=== PATIENT | female | born 1950 | race Caucasian/White ===

== ENCOUNTER 2017-06-25 21:53 | Emergency (ER) | payer MEDICAID, MEDICARE, OTHER ==
[~2017-06-25] VITALS: Ht 157.5 cm; Wt 77.1 kg
[2017-06-25 22:21] LABS: BASOPHILS # (AUTO) 0.1 10^3/uL (0.0-0.1); BASOPHILS % (AUTO) 1 % (0-10); EOSINOPHILS # (AUTO) 0.2 10^3/uL (0.0-0.3); EOSINOPHILS % (AUTO) 2 % (0-10); LYMPHOCYTES # (AUTO) 3.5 X 10^3 (1.0-4.0); LYMPHOCYTES % (AUTO) 34 % (12-44); MEAN CORPUSCULAR HEMOGLOBIN 30 PG (25-34); MEAN CORPUSCULAR HGB CONC 33 G/DL (32-36); MEAN CORPUSCULAR VOLUME 92 FL (80-99); MONOCYTES # (AUTO) 0.8 X 10^3 (0.0-1.0); MONOCYTES % (AUTO) 8 % (0-12); NEUTROPHILS # (AUTO) 5.7 X 10^3 (1.8-7.8); NEUTROPHILS % (AUTO) 55 % (42-75); PLATELET COUNT 368 10^3/uL (130-400); RED BLOOD COUNT 4.37 10^6/uL (4.35-5.85); RED CELL DISTRIBUTION WIDTH 14.4 % (10.0-14.5); WHITE BLOOD COUNT 10.3 10^3/uL (4.3-11.0)
[2017-06-25 22:30] LABS: PROTHROMBIN TIME PATIENT 12.6 SEC (12.2-14.7)
[2017-06-25] MEDS ORDERED: MECLIZINE 25 MG (ANTIVERT) TAB PO ONE (22:30)
[2017-06-25] MEDS ORDERED: SCOPOLAMINE 1.5 MG (TRANSDERM-SCOP) PATCH TD ONE (22:30)
[2017-06-25] MEDS ORDERED: ONDANSETRON 4 MG/2 ML (SDV) Z0FRAN IVP ONE (22:30)
[2017-06-25 22:36] LABS: BILIRUBIN,URINE NEGATIVE (NEGATIVE); KETONES,URINE NEGATIVE (NEGATIVE); LEUKOCYTE ESTERASE ,URINE 3+ (NEGATIVE); NITRITE,URINE NEGATIVE (NEGATIVE); PH,URINE 5 (5-9); PROTEIN,URINE NEGATIVE (NEGATIVE); UROBILINOGEN,URINE NORMAL (NORMAL)
[2017-06-25 22:38] LABS: ALANINE AMINOTRANSFERASE 15 U/L (0-55); ALBUMIN 4.2 GM/DL (3.2-4.5); ANION GAP 14 MMOL/L (5-14); ASPARTATE AMINO TRANSFERASE 14 U/L (5-34); BILIRUBIN,TOTAL 0.3 MG/DL (0.1-1.0); BLOOD UREA NITROGEN 16 MG/DL (7-18); BUN/CREATININE RATIO 18; CALCIUM 9.7 MG/DL (8.5-10.1); CARBON DIOXIDE 22 MMOL/L (21-32); CHLORIDE 105 MMOL/L (98-107); CREATINE KINASE 46 U/L (29-168); CREATININE SERUM 0.87 MG/DL (0.60-1.30); GFR ESTIMATED > 60; GLUCOSE 97 MG/DL (70-105); POTASSIUM 3.8 MMOL/L (3.6-5.0); SODIUM 141 MMOL/L (135-145); TOTAL PROTEIN 7.3 GM/DL (6.4-8.2)
[2017-06-25] MEDS ORDERED: Cod Liver Oil (22:40)
[2017-06-25] MEDS ORDERED: OMEP20CA12 (22:40)
[2017-06-25] MEDS ORDERED: Levothyroxine (22:40)
[2017-06-25] MEDS ORDERED: Simvastatin (22:40)
[2017-06-25 22:45] LABS: SQUAMOUS EPITHELIAL CELL,UR 0-2 /HPF
[2017-06-25 22:57] LABS: TROPONIN I < 0.30 NG/ML (<0.30)
[2017-06-25] MEDS ORDERED: MECL-106 PO (23:18)
[2017-06-25] MEDS ORDERED: TRIA10.8 NSEACH (23:18)
[2017-06-25] MEDS ORDERED: LEVO500T2 PO (23:18)
[2017-06-25] MEDS ORDERED: ONDA4TAB8 PO (23:18)
[2017-06-25] MEDS ORDERED: SCOP1PAT TD (23:18)
--- NOTE | 2017-06-25 23:18 | ED General ---
General Chief Complaint: Dizziness/Syncope Stated Complaint: DIZZINESS,VOMITING Nursing Triage Note: Pt ambulatory to ED reporting dizzy and nausea for 1 week, family assisted to WC. Pt moved here 2 weeks ago. Reports room spinning while lying. Pt is going to be established with LEEROY Newton ([facility]) on 07/16. Reports an am and pm emesis with her nausea. "Just been laying in bed most of week". Nursing Sepsis Screen: No Definite Risk Source of Information: Patient History of Present Illness Time Seen by Provider: 22:05 Initial Comments PT ARRIVES VIA POV FROM HOME C/O DIZZINESS X 1 WEEK HAS HAD INTERMITTENT NAUSEA AND VOMITED X 2 TODAY SITTING UP WORSENS DIZZINESS, AND LAYING DOWN IMPROVES DIZZINESS--HAS BEEN IN BED MOST OF THE DAY TODAY AND THE WEEK STATES IT IS A SPINNING SENSATION NO RECENT ILLNESS NO FEVER NO URI / SINUS SYMPTOMS NO CHEST PAIN NO SHORTNESS OF BREATH NO PALPITATIONS NO VISION CHANGES, OTHER THAN IS DIFFICULT TO FOCUS WHEN SHE IS REALLY DIZZY, BUT IS NORMAL WHEN SHE IS LAYING STILL NO PARESTHESIAS OR MOTOR DEFICITS NO HEADACHE NO HISTORY OF SIMILAR JUST MOVED HERE 2 WEEKS AGO FROM [place] TO BE CLOSER TO 'S FAMILY HAS NEW PT APPOINTMENT WITH [facility] AT [facility] ON 07/16/17 Allergies and Home Medications Allergies Coded Allergies: No Known Drug Allergies (Unverified , 06/25/17) Home Medications Levofloxacin 500 Mg Tablet, 500 MG PO DAILY, #10 Prescribed by: RENALDO SIGALA on 06/25/178 Meclizine HCl 25 Mg Tablet, 25-50 MG PO Q6H, #30 Prescribed by: RENALDO SIGALA on 06/25/172317 Omeprazole 20 Mg Capsule., #90 (Reported) Ondansetron 4 Mg Tab.rapdis, 4 MG PO Q4H, #10 Prescribed by: RENALDO SIGALA on 06/25/178 Prednisone 10 Mg Tab, 40 MG PO DAILY, #12 Prescribed by: RENALDO SIGALA on 06/25/173 Scopolamine 1 Each Patch.td72, 1 EACH TD Q72 HOURS, #3 Prescribed by: RENALDO SIGALA on 06/25/178 Triamcinolone Acetonide 10.8 Ml [place], 2 SPRAY NSEACH BID, #1 Prescribed by: RENALDO SIGALA on 06/25/17 2318 [Cod Liver Oil] , (Reported) [Levothyroxine] , (Reported) [Simvastatin] , (Reported) Constitutional: No chills, No diaphoresis, dizziness, No fever, malaise EENTM: no symptoms reported Respiratory: no symptoms reported Cardiovascular: no symptoms reported Gastrointestinal: no symptoms reported, No abdominal pain, nausea, vomiting Genitourinary: no symptoms reported Musculoskeletal: no symptoms reported Skin: no symptoms reported Psychiatric/Neurological: See HPI, Denies Headache, Denies Numbness, Denies Paresthesia, Denies Seizure, Denies Tingling, Denies Weakness Hematologic/Lymphatic: No Symptoms Reported Immunological/Allergic: no symptoms reported Past Diivyfa-Cvgdwa-Gxcihp Hx Patient Social History Alcohol Use: Denies Use Recreational Drug Use: No Smoking Status: Current Everyday Smoker (1/2 PPD) Type Used: Cigarettes 2nd Hand Smoke Exposure: Yes Recent Foreign Travel: No Contact w/Someone Who Travel: No Recent Infectious Disease Expo: No Recent Hopitalizations: No Seasonal Allergies Seasonal Allergies: No Surgeries HX Surgeries: Yes Surgeries: Appendectomy, Tubal Ligation Respiratory Hx Respiratory Disorders: No Cardiovascular Hx Cardiac Disorders: Yes Cardiac Disorders: High Cholesterol Neurological Hx Neurological Disorders: No Genitourinary Hx Genitourinary Disorders: No Gastrointestinal Hx Gastrointestinal Disorders: Yes Gastrointestinal Disorders: Gastroesophageal Reflux Musculoskeletal Hx Musculoskeletal Disorders: No Endocrine Hx Endocrine Disorders: Yes Endocrine Disorders: Hypothyroidsim HEENT HX ENT Disorders: No Cancer Hx Cancer: No Psychosocial Hx Psychiatric Problems: No Integumentary HX Skin/Integumentary Disorder: No Blood Transfusions Hx Blood Disorders: No Physical Exam Vital Signs Vital Sign - Last 12Hours 06/25/17 21:58 Temp 97.3 Pulse 96 Resp 20 B/P (MAP) 147/86 Pulse Ox 93 O2 Delivery Room Air Capillary Refill : Less Than 3 Seconds General Appearance: No Apparent Distress, WD/WN HEENT: PERRL/EOMI, Normal ENT Inspection, Pharynx Normal, Other (TM'S WITH EFFUSIONS) Neck: Full Range of Motion, Normal Inspection, Non Tender, Supple, No Carotid Bruit, No JVD Respiratory: Normal Breath Sounds, No Accessory Muscle Use, No Respiratory Distress Cardiovascular: Regular Rate, Rhythm, No Edema, No JVD, No Murmur, Normal Peripheral Pulses Gastrointestinal: Normal Bowel Sounds, No Organomegaly, No Pulsatile Mass, Non Tender, Soft Back: Normal Inspection Extremity: Normal Inspection, Normal Range of Motion, Non Tender, No Calf Tenderness, No Pedal Edema Neurologic/Psychiatric: Alert, Oriented x3, No Motor/Sensory Deficits, Normal 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, 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 Norm as Tested, No Abnormal Cerebellar Tests Reflexes: 2+ Bicep (R), 2+ Bicep (L), 2+ Knee (R), 2+ Knee (L) Skin: Normal Color, Warm/Dry Progress/Results/Core Measures Results/Orders Lab Results Laboratory Tests Test 06/25/17 22:08 06/25/17 22:30 Range/Units White Blood Count 10.3 4.3-11.0 10^3/uL Red Blood Count 4.37 4.35-5.85 10^6/uL Hemoglobin 13.1 11.5-16.0 G/DL Hematocrit 40 35-52 % Mean Corpuscular Volume 92 80-99 FL Mean Corpuscular Hemoglobin 30 25-34 PG Mean Corpuscular Hemoglobin Concent 33 32-36 G/DL Red Cell Distribution Width 14.4 10.0-14.5 % Platelet Count 368 130-400 10^3/uL Mean Platelet Volume 9.0 7.4-10.4 FL Neutrophils (%) (Auto) 55 42-75 % Lymphocytes (%) (Auto) 34 12-44 % Monocytes (%) (Auto) 8 0-12 % Eosinophils (%) (Auto) 2 0-10 % Basophils (%) (Auto) 1 0-10 % Neutrophils # (Auto) 5.7 1.8-7.8 X 10^3 Lymphocytes # (Auto) 3.5 1.0-4.0 X 10^3 Monocytes # (Auto) 0.8 0.0-1.0 X 10^3 Eosinophils # (Auto) 0.2 0.0-0.3 10^3/uL Basophils # (Auto) 0.1 0.0-0.1 10^3/uL Prothrombin Time 12.6 12.2-14.7 SEC INR Comment 1.0 0.8-1.4 Activated Partial Thromboplast Time 28 24-35 SEC Sodium Level 141 135-145 MMOL/L Potassium Level 3.8 3.6-5.0 MMOL/L Chloride Level 105 98-107 MMOL/L Carbon Dioxide Level 22 21-32 MMOL/L Anion Gap 14 5-14 MMOL/L Blood Urea Nitrogen 16 7-18 MG/DL Creatinine 0.87 0.60-1.30 MG/DL Estimat Glomerular Filtration Rate > 60 BUN/Creatinine Ratio 18 Glucose Level 97 70-105 MG/DL Calcium Level 9.7 8.5-10.1 MG/DL Magnesium Level 2.0 1.8-2.4 MG/DL Total Bilirubin 0.3 0.1-1.0 MG/DL Aspartate Amino Transf (AST/SGOT) 14 5-34 U/L Alanine Aminotransferase (ALT/SGPT) 15 0-55 U/L Alkaline Phosphatase 78 40-136 U/L Total Creatine Kinase 46 29-168 U/L Creatine Kinase MB 1.4 <6.6 NG/ML Troponin I < 0.30 <0.30 NG/ML Total Protein 7.3 6.4-8.2 GM/DL Albumin 4.2 3.2-4.5 GM/DL TSH [place] Testing 2.56 0.35-4.94 UIU/ML Urine Color YELLOW Urine Clarity CLEAR Urine pH 5 5-9 Urine Specific [place] 1.010 L 1.016-1.022 Urine Protein NEGATIVE NEGATIVE Urine Glucose (UA) NEGATIVE NEGATIVE Urine Ketones NEGATIVE NEGATIVE Urine Nitrite NEGATIVE NEGATIVE Urine Bilirubin NEGATIVE NEGATIVE Urine Urobilinogen NORMAL NORMAL MG/DL Urine Leukocyte Esterase 3+ H NEGATIVE Urine RBC (Auto) 1+ H NEGATIVE Urine RBC RARE /HPF Urine WBC 10-25 H /HPF Urine Squamous Epithelial Cells 0-2 /HPF Urine Crystals NONE /LPF Urine Bacteria TRACE /HPF Urine Casts NONE /LPF Urine Mucus NEGATIVE /LPF Urine Culture Indicated YES My Orders Orders - RENALDO SIGALA DO Saline Lock/Iv-Start (06/25/17 22:09) Ekg Tracing (06/25/17 22:09) Monitor-Rhythm Ecg Trace Only (06/25/17 22:09) Ct Head Wo (06/25/17 22:09) Cbc With Automated Diff (06/25/17 22:09) Comprehensive Metabolic Panel (06/25/17 22:09) Creatine Kinase (06/25/17 22:09) Creatine Kinase Mb (06/25/17 22:09) Magnesium (06/25/17 22:09) Protime With Inr (06/25/17 22:09) Partial Thromboplastin Time (06/25/17 22:09) Thyroid Analyzer (06/25/17 22:09) Troponin I (06/25/17 22:09) Ua Culture If Indicated (06/25/17 22:09) Chest 1 View, Ap/Pa Only (06/25/17 22:09) Scopolamine Patch (Transderm-Scop Patch) (06/25/17 22:30) Meclizine Tablet (Antivert Tablet) (06/25/17 22:30) Ondansetron Injection (Zofran Injectio (06/25/17 22:30) Urine Culture (06/25/17 22:30) Ceftriaxone Injection (Rocephin Injectio (06/25/17 23:30) Medications Given in ED Current Medications Medications Dose Ordered Sig/Jessica Route Start Time Stop Time Status Last Admin Dose Admin Ceftriaxone Sodium 1000 mg/ Sodium Chloride 50 ml @ 100 mls/hr ONCE ONCE IV 06/25/17 23:30 06/25/17 23:48 DC 06/25/17 23:40 100 MLS/HR Meclizine HCl 50 mg ONCE ONCE PO 06/25/17 22:30 06/25/17 22:31 DC 06/25/17 22:47 50 MG Ondansetron HCl 4 mg ONCE ONCE IVP 06/25/17 22:30 06/25/17 22:31 DC 06/25/17 22:47 4 MG Scopolamine 1.5 mg ONCE ONCE TD 06/25/17 22:30 06/25/17 22:31 DC 06/25/17 22:47 1.5 MG Vital Signs/I&O Vital Sign - Last 12Hours 06/25/17 06/25/17 21:58 23:46 Temp 97.3 97.3 Pulse 96 93 Resp 20 21 B/P (MAP) 147/86 Pulse Ox 93 93 O2 Delivery Room Air Room Air Intake and Output 06/26/17 00:00 Intake Total 50 ml Balance 50 ml Blood Pressure Mean: 106 Progress Note : Progress Note SYMPTOMS IMPROVED AT DISMISSAL ECG Initial ECG Impression Time: 22:18 Initial ECG Rate: 91 Initial ECG Rhythm: Normal Sinus Initial ECG Impression: Normal Initial ECG Comparisson: No Previous ECG Available Diagnostic Imaging Comments CXR--NO ACUTE PROCESS, PENDING RADIOLOGIST REVIEW CT HEAD--SMALL RIGHT MAXILLARY SINUS FLUID, OTHERWISE NO ACUTE PROCESS--PER [facility] VIA FAX @ 0922 Reviewed: Reviewed by Me Departure Impression Impression: Primary Impression: Vertigo Additional Impressions: UTI (urinary tract infection) Sinusitis Disposition: 01 HOME, SELF-CARE Condition: Improved Departure-Patient Inst. Referrals: [facility] (PCP/Family) Primary Care Physician Patient Instructions: Sinusitis, Adult (DC), Urinary Tract Infection, Adult (DC ), Vertigo (a Type of Dizziness) (DC) Add. Discharge Instructions: HOME, REST LOTS OF CLEAR LIQUIDS--NO COFFEE POP OR TEA CONTINUE YOUR REGULAR MEDICATIONS PRESCRIBED FOLLOW UP WITH [facility] IN 2-3 DAYS FOR FURTHER CARE RETURN TO ER IF WORSE All discharge instructions reviewed with patient and/or family. Voiced understanding. Scripts Prednisone (Prednisone) 10 Mg Tab 40 MG PO DAILY, #12 TAB Prov: RENALDO SIGALA DO 06/25/17 Triamcinolone Acetonide (Nasacort) 10.8 Ml [place] 2 SPRAY NSEACH BID, #1 SPRAY Prov: RENALDO SIGALA DO 06/25/17 Levofloxacin (Levaquin) 500 Mg Tablet 500 MG PO DAILY for INFECTION, #10 TAB Prov: RENALDO SIGALA DO 06/25/17 Ondansetron (Zofran Odt) 4 Mg Tab.rapdis 4 MG PO Q4H for Nausea/Vomiting, #10 TAB Prov: RENALDO SIGALA DO 06/25/17 Meclizine HCl (Meclizine HCl) 25 Mg Tablet 25-50 MG PO Q6H for Dizziness, #30 TAB Prov: RENALDO SIGALA DO 06/25/17 Scopolamine (Transderm-Scop) 1 Each Patch.td72 1 EACH TD Q72 HOURS for Dizziness, #3 PATCH Prov: RENALDO SIGALA DO 06/25/17 RENALDO SIGALA DO Jun 25, 2017 23:18
[2017-06-25] MEDS ORDERED: PRD10T PO (23:23)
[2017-06-25] MEDS ORDERED: cefTRIAXone INJECTION 1,000 MG in NS (IVPB) 50 ML IV ONE (23:30)
[2017-06-25 23:46] VITALS: BP 136/73
--- NOTE | 2017-06-26 05:54 | Diagnostic Imaging Report ---
INDICATION: Dizziness TECHNIQUE: Routine non contrast-enhanced axial images were obtained from the skull base to the vertex. COMPARISON: None. FINDINGS: The ventricles and cortical sulci are age-appropriate. There is no midline shift or mass-effect. No acute intra-axial hemorrhage is seen. There are no abnormal areas of increased or decreased density to suggest acute hemorrhage or edema. No extra-axial masses or collections are present. The bony calvarium is intact. The visualized paranasal sinuses show small mucosal retention cyst versus polyp and possible air-fluid level in the right maxillary sinus. The mastoid air cells are clear. IMPRESSION: 1. No acute intracranial abnormality. No CT evidence of mass, acute infarct or intracranial hemorrhage. 2. Right maxillary sinus disease as described above. Correlation for acute sinusitis is recommended. Dictated by: Dictated on workstation # [id number]
--- NOTE | 2017-06-26 06:27 | Diagnostic Imaging Report ---
INDICATION: Dizziness. FINDINGS: Portable chest shows the lungs to be clear. Heart is not enlarged. No evidence of pulmonary edema. No hilar adenopathy. No pneumothorax or pleural effusion. IMPRESSION: Negative portable chest. Dictated by: Dictated on workstation # [id number]
== END 2017-06-25 23:47 | disposition home or self-care (01) ==
LOC: EDBD 21:56 → ER 21:56
DX: N39.0 Urinary tract infection, site not specified (principal); J32.9 Chronic sinusitis, unspecified; R42 Dizziness and giddiness; E78.00 Pure hypercholesterolemia, unspecified; K21.9 Gastro-esophageal reflux disease without esophagitis; F17.210 Nicotine dependence, cigarettes, uncomplicated; Z90.49 Acquired absence of other specified parts of digestive tract; Z98.51 Tubal ligation status
CPT/HCPCS: 36415; 70450; 71010; 80053; 81000; 82550; 82553; 83735; 84443; 84484; 85025; 85610; 85730; 87088; 87186; 93005; 93041; 96374; 96375

== ENCOUNTER 2017-07-01 15:30 | Emergency (ER) | payer MEDICARE ==
[~2017-07-01] VITALS: Ht 157.5 cm; Wt 68.0 kg
[~2017-07-01 15:30] MED LIST: Cod Liver Oil; LEVO500T2 PO; Levothyroxine; MECL-106 PO; OMEP20CA12; ONDA4TAB8 PO; PRD10T PO; SCOP1PAT TD; Simvastatin; TRIA10.8 NSEACH
--- NOTE | 2017-07-01 16:20 | ED General ---
General Chief Complaint: Dizziness/Syncope Stated Complaint: WEAKNESS,DIZZINESS Nursing Triage Note: PT REPORTS DIZZINESS X2 WEEKS. PT WAS SEEN LAST WEEK IN ED FOR SIMILAR S/S WITH NAUSEA. PT REPORTS SHE IS JITTERY TODAY AND SHE IS ALSO HAVING GENERALIZED WEAKNESS. Nursing Sepsis Screen: No Definite Risk Source of Information: Patient Exam Limitations: No Limitations History of Present Illness Time Seen by Provider: 16:18 Initial Comments To ER with dizziness for 2 weeks worsened by movement and improved by rest, "head is jittery", no appetite. She denies fevers or chills or pains. She was seen here a few days ago and evaluated for this with labs and the CT scan which were unremarkable. She states that she is taking all of the medication that she was prescribed but does not feel any better. She recently moved to the area from [place]. She does not yet have a regular physician is scheduled to establish care with [facility]. Timing/Duration: 1-2 Days Severity: Moderate Allergies and Home Medications Allergies Coded Allergies: No Known Drug Allergies (Unverified , 06/25/17) Home Medications Levofloxacin 500 Mg Tablet, 500 MG PO DAILY, #10 Prescribed by: RENALDO SIGALA on 06/25/178 Meclizine HCl 25 Mg Tablet, 25-50 MG PO Q6H, #30 Prescribed by: RENALDO SIGALA on 06/25/178 Omeprazole 20 Mg Capsule., #90 (Reported) Ondansetron 4 Mg Tab.rapdis, 4 MG PO Q4H, #10 Prescribed by: RENALDO SIGALA on 06/25/178 Prednisone 10 Mg Tab, 40 MG PO DAILY, #12 Prescribed by: RENALDO SIGALA on 06/25/17 2323 Scopolamine 1 Each Patch.td72, 1 EACH TD Q72 HOURS, #3 Prescribed by: RENALDO SIGALA on 06/25/178 Triamcinolone Acetonide 10.8 Ml [place], 2 SPRAY NSEACH BID, #1 Prescribed by: RENALDO SIGALA on 06/25/178 [Cod Liver Oil] , (Reported) [Levothyroxine] , (Reported) [Simvastatin] , (Reported) Constitutional: see HPI EENTM: see HPI Respiratory: no symptoms reported Cardiovascular: no symptoms reported Genitourinary: no symptoms reported Musculoskeletal: no symptoms reported Skin: no symptoms reported Psychiatric/Neurological: See HPI Hematologic/Lymphatic: No Symptoms Reported Immunological/Allergic: no symptoms reported Past Zcbbtwz-Fckgjj-Nnnskd Hx Patient Social History Alcohol Use: Denies Use Recreational Drug Use: No Smoking Status: Current Everyday Smoker Type Used: Cigarettes 2nd Hand Smoke Exposure: Yes Recent Foreign Travel: No Contact w/Someone Who Travel: No Recent Infectious Disease Expo: No Recent Hopitalizations: No Seasonal Allergies Seasonal Allergies: No Surgeries HX Surgeries: Yes Surgeries: Appendectomy, Tubal Ligation Respiratory Hx Respiratory Disorders: No Cardiovascular Hx Cardiac Disorders: Yes Cardiac Disorders: High Cholesterol Neurological Hx Neurological Disorders: No Genitourinary Hx Genitourinary Disorders: No Gastrointestinal Hx Gastrointestinal Disorders: Yes Gastrointestinal Disorders: Gastroesophageal Reflux Musculoskeletal Hx Musculoskeletal Disorders: No Endocrine Hx Endocrine Disorders: Yes Endocrine Disorders: Hypothyroidsim HEENT HX ENT Disorders: No Cancer Hx Cancer: No Psychosocial Hx Psychiatric Problems: No Integumentary HX Skin/Integumentary Disorder: No Blood Transfusions Hx Blood Disorders: No Physical Exam Vital Signs Vital Sign - Last 12Hours 07/01/17 16:12 Temp 99.0 Pulse 84 Resp 20 B/P (MAP) 130/62 Pulse Ox 97 Capillary Refill : Less Than 3 Seconds General Appearance: No Apparent Distress, WD/WN Eyes: Bilateral Eye EOMI, Bilateral Eye Normal Inspection, Bilateral Eye PERRL HEENT: PERRL/EOMI, TMs Normal, Other (no nystagmus) Neck: Full Range of Motion, Normal Inspection Respiratory: Lungs Clear, Normal Breath Sounds, No Accessory Muscle Use, No Respiratory Distress Cardiovascular: Regular Rate, Rhythm, Normal Peripheral Pulses Gastrointestinal: Normal Bowel Sounds, Non Tender, Soft Extremity: Normal Capillary Refill, Normal Inspection Neurologic/Psychiatric: Alert, Oriented x3, No Motor/Sensory Deficits Skin: Normal Color, Warm/Dry Progress/Results/Core Measures Results/Orders Lab Results Laboratory Tests Test 07/01/17 16:22 07/01/17 17:29 Range/Units White Blood Count 10.9 4.3-11.0 10^3/uL Red Blood Count 4.80 4.35-5.85 10^6/uL Hemoglobin 14.2 11.5-16.0 G/DL Hematocrit 44 35-52 % Mean Corpuscular Volume 91 80-99 FL Mean Corpuscular Hemoglobin 30 25-34 PG Mean Corpuscular Hemoglobin Concent 33 32-36 G/DL Red Cell Distribution Width 14.2 10.0-14.5 % Platelet Count 357 130-400 10^3/uL Mean Platelet Volume 8.9 7.4-10.4 FL Neutrophils (%) (Auto) 69 42-75 % Lymphocytes (%) (Auto) 24 12-44 % Monocytes (%) (Auto) 6 0-12 % Eosinophils (%) (Auto) 1 0-10 % Basophils (%) (Auto) 0 0-10 % Neutrophils # (Auto) 7.5 1.8-7.8 X 10^3 Lymphocytes # (Auto) 2.6 1.0-4.0 X 10^3 Monocytes # (Auto) 0.7 0.0-1.0 X 10^3 Eosinophils # (Auto) 0.1 0.0-0.3 10^3/uL Basophils # (Auto) 0.0 0.0-0.1 10^3/uL Erythrocyte Sedimentation Rate 9 0-30 MM/HR Sodium Level 142 135-145 MMOL/L Potassium Level 4.1 3.6-5.0 MMOL/L Chloride Level 105 98-107 MMOL/L Carbon Dioxide Level 25 21-32 MMOL/L Anion Gap 12 5-14 MMOL/L Blood Urea Nitrogen 13 7-18 MG/DL Creatinine 0.86 0.60-1.30 MG/DL Estimat Glomerular Filtration Rate > 60 BUN/Creatinine Ratio 15 Glucose Level 102 70-105 MG/DL Calcium Level 9.6 8.5-10.1 MG/DL Total Bilirubin 0.8 0.1-1.0 MG/DL Aspartate Amino Transf (AST/SGOT) 15 5-34 U/L Alanine Aminotransferase (ALT/SGPT) 16 0-55 U/L Alkaline Phosphatase 71 40-136 U/L Troponin I < 0.30 <0.30 NG/ML C-Reactive Protein High Sensitivity 1.75 H 0.00-0.50 MG/DL B-Type Natriuretic Peptide 20.1 <100.0 PG/ML Total Protein 7.0 6.4-8.2 GM/DL Albumin 4.0 3.2-4.5 GM/DL Lipase < 4 L 8-78 U/L Thyroid Stimulating Hormone (TSH) 2.18 0.35-4.94 UIU/ML Urine Color YELLOW Urine Clarity CLEAR Urine pH 7 5-9 Urine Specific [place] 1.005 L 1.016-1.022 Urine Protein NEGATIVE NEGATIVE Urine Glucose (UA) NEGATIVE NEGATIVE Urine Ketones NEGATIVE NEGATIVE Urine Nitrite NEGATIVE NEGATIVE Urine Bilirubin NEGATIVE NEGATIVE Urine Urobilinogen NORMAL NORMAL MG/DL Urine Leukocyte Esterase NEGATIVE NEGATIVE Urine RBC (Auto) NEGATIVE NEGATIVE Urine RBC NONE /HPF Urine WBC NONE /HPF Urine Squamous Epithelial Cells 2-5 /HPF Urine Crystals NONE /LPF Urine Bacteria NONE /HPF Urine Casts NONE /LPF Urine Mucus NEGATIVE /LPF Urine Culture Indicated NO My Orders Orders - DONYA TOUSSAINT APRN Cbc With Automated Diff (07/01/17 16:06) Comprehensive Metabolic Panel (07/01/17 16:06) BNP (07/01/17 16:06) Troponin I (07/01/17 16:06) Ekg Tracing (07/01/17 16:06) Ua Culture If Indicated (07/01/17 16:06) Drug Screen Stat (Urine) (07/01/17 16:17) Lipase (07/01/17 16:17) Ns Iv 1000 Ml (Sodium Chloride 0.9%) (07/01/17 16:30) Meclizine Tablet (Antivert Tablet) (07/01/17 16:30) Erythrocyte Sedimentation Rate (07/01/17 16:17) Hs C Reactive Protein (07/01/17 16:17) Thyroid Stimulating Hormone (07/01/17 16:17) Medications Given in ED Current Medications Medications Dose Ordered Sig/Jessica Route Start Time Stop Time Status Last Admin Dose Admin Meclizine HCl 25 mg ONCE ONCE PO 07/01/17 16:30 07/01/17 16:31 DC 07/01/17 16:43 25 MG Vital Signs/I&O Vital Sign - Last 12Hours 07/01/17 16:12 Temp 99.0 Pulse 84 Resp 20 B/P (MAP) 130/62 Pulse Ox 97 Blood Pressure Mean: 84 Departure Impression Impression: Primary Impression: Vertigo Disposition: 01 HOME, SELF-CARE Condition: Stable Departure-Patient Inst. Decision time for Depature: 18:07 Referrals: [facility] (PCP/Family) Primary Care Physician Patient Instructions: Vertigo (a Type of Dizziness) (DC) Add. Discharge Instructions: 1. Follow-up with [facility] as scheduled. If you have a need more emergent Marco A Roman July 16 appointment U should either return to the emergency room or go to the walk-in clinic which is also at [facility]. All discharge instructions reviewed with patient and/or family. Voiced understanding. Scripts Meclizine HCl (Meclizine HCl) 25 Mg Tablet 25 MG PO TID Y for DIZZINESS, #10 TAB Prov: DONYA TOUSSAINT APRN 07/01/17 DONYA TOUSSAINT APRN Jul 01, 2017 16:20
[2017-07-01] MEDS ORDERED: MECLIZINE 25 MG (ANTIVERT) TAB PO ONE (16:30)
[2017-07-01] MEDS ORDERED: NS IV 1000 ML 1,000 ML IV SCH (16:30)
[2017-07-01 16:33] LABS: BASOPHILS % (AUTO) 0 % (0-10); EOSINOPHILS # (AUTO) 0.1 10^3/uL (0.0-0.3); EOSINOPHILS % (AUTO) 1 % (0-10); LYMPHOCYTES # (AUTO) 2.6 X 10^3 (1.0-4.0); LYMPHOCYTES % (AUTO) 24 % (12-44); MEAN CORPUSCULAR HEMOGLOBIN 30 PG (25-34); MEAN CORPUSCULAR HGB CONC 33 G/DL (32-36); MEAN CORPUSCULAR VOLUME 91 FL (80-99); MEAN PLATELET VOLUME 8.9 FL (7.4-10.4); MONOCYTES # (AUTO) 0.7 X 10^3 (0.0-1.0); MONOCYTES % (AUTO) 6 % (0-12); NEUTROPHILS # (AUTO) 7.5 X 10^3 (1.8-7.8); NEUTROPHILS % (AUTO) 69 % (42-75); PLATELET COUNT 357 10^3/uL (130-400); RED CELL DISTRIBUTION WIDTH 14.2 % (10.0-14.5); WHITE BLOOD COUNT 10.9 10^3/uL (4.3-11.0)
[2017-07-01 16:53] LABS: ALANINE AMINOTRANSFERASE 16 U/L (0-55); ANION GAP 12 MMOL/L (5-14); ASPARTATE AMINO TRANSFERASE 15 U/L (5-34); BILIRUBIN,TOTAL 0.8 MG/DL (0.1-1.0); BLOOD UREA NITROGEN 13 MG/DL (7-18); BUN/CREATININE RATIO 15; CALCIUM 9.6 MG/DL (8.5-10.1); CARBON DIOXIDE 25 MMOL/L (21-32); CHLORIDE 105 MMOL/L (98-107); CREATININE SERUM 0.86 MG/DL (0.60-1.30); GFR ESTIMATED > 60; GLUCOSE 102 MG/DL (70-105); LIPASE < 4 U/L (8-78); POTASSIUM 4.1 MMOL/L (3.6-5.0); SODIUM 142 MMOL/L (135-145); hs C REACTIVE PROTEIN 1.75 MG/DL (0.00-0.50)
[2017-07-01 16:59] LABS: ERYTHROCYTE SEDIMENTATION RATE 9 MM/HR (0-30)
[2017-07-01 17:23] LABS: TROPONIN I < 0.30 NG/ML (<0.30)
[2017-07-01 17:33] LABS: THYROID STIMULATING HORMONE 2.18 UIU/ML (0.35-4.94)
[2017-07-01 17:36] LABS: BILIRUBIN,URINE NEGATIVE (NEGATIVE); KETONES,URINE NEGATIVE (NEGATIVE); LEUKOCYTE ESTERASE ,URINE NEGATIVE (NEGATIVE); NITRITE,URINE NEGATIVE (NEGATIVE); PH,URINE 7 (5-9); PROTEIN,URINE NEGATIVE (NEGATIVE); UROBILINOGEN,URINE NORMAL (NORMAL)
[2017-07-01] MEDS ORDERED: MECL-106 PO (18:08)
[2017-07-01 18:35] VITALS: BP 132/74
== END 2017-07-01 18:35 | disposition home or self-care (01) ==
LOC: EDUNIT# 15:30 → ER 15:32
DX: R42 Dizziness and giddiness (principal); E78.00 Pure hypercholesterolemia, unspecified; K21.9 Gastro-esophageal reflux disease without esophagitis; E03.9 Hypothyroidism, unspecified; F17.210 Nicotine dependence, cigarettes, uncomplicated; Z98.51 Tubal ligation status; Z90.49 Acquired absence of other specified parts of digestive tract
CPT/HCPCS: 36415; 80053; 80306; 81000; 83690; 83880; 84443; 84484; 85025; 85652; 86141; 93005; 96360; 96361

== ENCOUNTER → 2018-01-14 | Outpatient (CLI) | payer MEDICARE, MEDICAID ==
--- NOTE | 2018-01-14 09:00 | Diagnostic Imaging Report ---
PROCEDURE: CT abdomen and pelvis without contrast. TECHNIQUE: Multiple contiguous axial images were obtained through the abdomen and pelvis without the use of intravenous contrast. INDICATION: Vomiting. Bloating. Possible liver lesion. COMPARISON: None. FINDINGS: Included portions of the lung bases show 6 mm subpleural micronodule in the lateral margins of the left lower lobe (image 7, series 2). Note is made of calcified coronary atherosclerosis. CT ABDOMEN: Liver has an unremarkable noncontrast CT appearance. The kidneys, spleen, pancreas, and adrenal glands are unremarkable as well. Small bowel loops are nondistended. Normal appendix cannot adequately identified, but there is no pericecal formation. There are a few scattered colonic diverticuli, but no CT evidence of acute diverticulitis. There is no loculated fluid collection, free fluid, nor free air within the abdomen. No abnormal mesenteric or retroperitoneal adenopathy is seen. There is moderate calcified aortic atherosclerosis. Bony structures show no acute abnormalities. CT PELVIS: Urinary bladder is unopacified. No calculi are seen within urinary bladder. There is no loculated fluid collection, free fluid, nor free air within the pelvis. No abnormal lymph nodes are identified. Bony structures show no acute abnormalities. IMPRESSION: 1. No acute abnormalities are seen within the abdomen or pelvis. 2. Colonic diverticulosis, but no CT evidence of acute diverticulitis. 3. Calcified coronary and aortic atherosclerosis. Correlation for underlying risk factors is recommended. 4. 6 mm micronodule within the included portion of the left lower lobe. Please see below for followup recommendations. PULMONARY NODULE FOLLOW-UP Single nodule: <6 mm: * Low risk patient - no routine follow up * High risk patient - optional at 12 months 6-8 mm in size: * Low risk patient - Ct at 6-12 months, then consider at 18-24 months * High risk patient - Ct at 6-12 months, then at 18-24 months >8 mm * Low risk patient - consider CT at 3 months, PET/CT or tissue sampling * High risk patient - consider CT at 3 months, PET/CT, or tissue sampling (Certain patients at high risk with suspicious nodule morphology, upper lobe location, or both may warrant 12-month follow-up) Dictated by: Dictated on workstation # [id number]
== END ==
LOC: RAD 08:29
PROVIDERS: ATTEND Nurse Practitioner Family
DX: I25.10 Atherosclerotic heart disease of native coronary artery without angina pectoris (principal); I70.0 Atherosclerosis of aorta; K57.30 Diverticulosis of large intestine without perforation or abscess without bleeding; K76.9 Liver disease, unspecified; R91.1 Solitary pulmonary nodule; R11.10 Vomiting, unspecified
CPT/HCPCS: 74176

== ENCOUNTER 2019-11-11 13:51 | Emergency (ER) | payer MEDICARE, MEDICAID ==
[~2019-11-11] VITALS: Ht 160 cm; Wt 72.0 kg
[~2019-11-11 13:51] MED LIST changes: -OMEP20CA12; +OMEP20CA13; -SCOP1PAT TD; +SCOP1PAT11 TD
[2019-11-11 14:19] LABS: BASOPHILS % (AUTO) 0 % (0-10); EOSINOPHILS # (AUTO) 0.1 10^3/uL (0.0-0.3); EOSINOPHILS % (AUTO) 1 % (0-10); HEMATOCRIT 42 % (35-52); HEMOGLOBIN 13.9 G/DL (11.5-16.0); LYMPHOCYTES # (AUTO) 2.6 X 10^3 (1.0-4.0); LYMPHOCYTES % (AUTO) 29 % (12-44); MEAN CORPUSCULAR HEMOGLOBIN 30 PG (25-34); MEAN CORPUSCULAR HGB CONC 33 G/DL (32-36); MEAN CORPUSCULAR VOLUME 91 FL (80-99); MEAN PLATELET VOLUME 9.1 FL (7.4-10.4); MONOCYTES # (AUTO) 0.7 X 10^3 (0.0-1.0); MONOCYTES % (AUTO) 7 % (0-12); NEUTROPHILS # (AUTO) 5.7 X 10^3 (1.8-7.8); NEUTROPHILS % (AUTO) 63 % (42-75); PLATELET COUNT 353 10^3/uL (130-400); RED CELL DISTRIBUTION WIDTH 13.9 % (10.0-14.5)
[2019-11-11] MEDS ORDERED: NS IV 1000 ML 1,000 ML IV SCH (14:25)
[2019-11-11] MEDS ORDERED: ONDANSETRON 4 MG/2 ML (SDV) Z0FRAN IVP ONE (14:30)
[2019-11-11] MEDS ORDERED: HYOSCYAMINE 0.125 MG (LEVSIN) TAB SL ONE (14:30)
[2019-11-11 14:37] LABS: ALANINE AMINOTRANSFERASE 10 U/L (0-55); ALBUMIN 4.8 GM/DL (3.2-4.5); ALKALINE PHOSPHATASE 67 U/L (40-136); AMYLASE 47 U/L (25-125); BILIRUBIN,TOTAL 0.4 MG/DL (0.1-1.0); BUN/CREATININE RATIO 18; CALCIUM 9.8 MG/DL (8.5-10.1); CARBON DIOXIDE 24 MMOL/L (21-32); CHLORIDE 108 MMOL/L (98-107); CREATININE SERUM 0.77 MG/DL (0.60-1.30); GFR ESTIMATED > 60; GLUCOSE 106 MG/DL (70-105); LIPASE 15 U/L (8-78); SODIUM 144 MMOL/L (135-145); TOTAL PROTEIN 7.7 GM/DL (6.4-8.2)
[2019-11-11 14:42] LABS: POTASSIUM 3.9 MMOL/L (3.6-5.0)
[2019-11-11] MEDS ORDERED: HOLD METFORMIN - RECEIVED CONTRAST 20 ML VIAL IV SCH (15:15)
[2019-11-11] MEDS ORDERED: IOHEXOL 350 MG/ML 100 ML (OMNIPAQUE 350) VIAL IV ONE (15:15)
[2019-11-11] MEDS ORDERED: NS 100 ML (IVPB) BAG IV ONE (15:15)
--- NOTE | 2019-11-11 15:19 | ED Abdominal Pain ---
General Chief Complaint: Abdominal/GI Problems Stated Complaint: SEVERE ABD PAIN Nursing Triage Note: Pt amb to room #7 with walker assist. Sent from [facility] clinic with report of medial abd discomfort, abd distension, nausea, and vomiting. Pt reports symtpoms began on the night of . Denies fever or chills. A&OX4. Sepsis Screen: No Definite Risk History of Present Illness Date Seen by Provider: Nov 11, 2019 Time Seen by Provider: 14:05 Initial Comments 69-year-old female presents for abdominal pain. Patient reports her symptoms of been present for approximately 5 days, with no significant pain in the epigastric region. She has some associated nausea and has vomited 2-3 times daily. She has been drinking water and eating Jell-O but no other solid foods. She reports a bowel movement this morning with no change in color or consistency. She's had a previous appendectomy no other abdominal surgeries. Hx of GERD, takes omeprazole and sucralfate. Timing/Duration: 5-6 Days Severity/Quality: Moderate Location: Epigastric Radiation: No Radiation Associated Symptoms: No Denies Symptoms, No Back Pain, No Chest Pain, No Diaphoresis, No Fever/Chills, No Fatigue, No Headache; Heartburn, Nausea/Vomiting; No Rash, No Shortness of Air, No Swelling/Mass in Abdomen, No Syncope, No Weakness, No Other Allergies and Home Medications Allergies Coded Allergies: No Known Drug Allergies (Unverified , 06/25/17) Home Medications Levofloxacin 500 Mg Tablet, 500 MG PO DAILY Prescribed by: RENALDO SIGALA on 06/25/172317 Meclizine HCl 25 Mg Tablet, 25-50 MG PO Q6H Prescribed by: RENALDO SIGALA on 06/25/172317 Meclizine HCl 25 Mg Tablet, 25 MG PO TID PRN for DIZZINESS Prescribed by: DONYA TOUSSAINT on 07/01/17 180 Ondansetron 4 Mg Tab.rapdis, 4 MG PO Q4H Prescribed by: RENALDO SIGALA on 06/25/172317 Ondansetron 4 Mg Tab.rapdis, 4 MG PO Q6H PRN for NAUSEA/VOMITING Prescribed by: STEPH ARCHER on 11/11/19 1654 Prednisone 10 Mg Tab, 40 MG PO DAILY Prescribed by: RENALDO SIGALA on 8/1/17 2323 Scopolamine 1 Each Patch.td72, 1 EACH TD Q72 HOURS Prescribed by: RENALDO SIGALA on 06/25/172317 Triamcinolone Acetonide 10.8 M[address] [place], 2 SPRAY NSEACH BID Prescribed by: RENALDO SIGALA on 06/25/172317 Patient Home Medication List Home Medication List Reviewed: Yes Review of Systems Review of Systems Constitutional: no symptoms reported, see HPI Gastrointestinal: See HPI, Abdomen Distended, Abdominal Pain; Denies Blood Streaked Stools, Denies Constipated, Denies Diarrhea; Nausea, Poor Appetite; Denies Poor Fluid Intake, Denies Rectal Bleeding; Vomiting All Other Systems Reviewed Negative Unless Noted: Yes Past Smwssym-Qfcgdp-Xlogmx Hx Past Med/Social Hx: Reviewed Nursing Past Med/Soc Hx Patient Social History Alcohol Use: Denies Use Recreational Drug Use: No Type Used: Cigarettes 2nd Hand Smoke Exposure: Yes Recent Foreign Travel: No Contact w/Someone Who Travel: No Recent Infectious Disease Expo: No Recent Hopitalizations: No Physical Abuse: No Sexual Abuse: No Seasonal Allergies Seasonal Allergies: No Past Medical History Surgeries: Yes Appendectomy, Tubal Ligation Respiratory: No Cardiac: Yes High Cholesterol Neurological: No Genitourinary: No Gastrointestinal: Yes Gastroesophageal Reflux Musculoskeletal: No Endocrine: Yes Hypothyroidsim, Diabetes, Non-Insulin dep HEENT: No Cancer: No Psychosocial: No Integumentary: No Blood Disorders: No Physical Exam Vital Signs Vital Signs - First Documented 11/11/19 14:00 Temp 36.5 Pulse 96 Resp 18 B/P (MAP) 138/88 (105) Pulse Ox 95 O2 Delivery Room Air Capillary Refill : Less Than 3 Seconds Height/Weight/BMI Height: 5'2.00" Weight: 150lbs. oz. 68.792797si; 28.00 BMI Method:Estimated General Appearance: WD/WN, no apparent distress HEENT: PERRL/EOMI, normal ENT inspection, TMs normal, pharynx normal Neck: non-tender, full range of motion, supple, normal inspection Respiratory: chest non-tender, lungs clear, normal breath sounds Cardiovascular: normal peripheral pulses, regular rate, rhythm Gastrointestinal: normal bowel sounds, soft, distended; No guarding, No rebound; tenderness (generalized with increased tenderness in the epigastric region); No hernia, No mass; other (positive Barrios sign) Extremities: normal range of motion, normal inspection, no pedal edema, no calf tenderness, normal capillary refill, other (generalized joint and the lower extremities secondary to arthritis. Patient uses a walker at all times for ambulation.) Back: normal inspection, no CVA tenderness Neurologic/Psychiatric: no motor/sensory deficits, alert, normal mood/affect, oriented x 3 Skin: normal color, warm/dry Progress/Results/Core Measures Results/Orders Lab Results Laboratory Tests Test 11/11/19 14:07 11/11/19 15:35 Range/Units White Blood Count 9.0 4.3-11.0 10^3/uL Red Blood Count 4.62 4.35-5.85 10^6/uL Hemoglobin 13.9 11.5-16.0 G/DL Hematocrit 42 35-52 % Mean Corpuscular Volume 91 80-99 FL Mean Corpuscular Hemoglobin 30 25-34 PG Mean Corpuscular Hemoglobin Concent 33 32-36 G/DL Red Cell Distribution Width 13.9 10.0-14.5 % Platelet Count 353 130-400 10^3/uL Mean Platelet Volume 9.1 7.4-10.4 FL Neutrophils (%) (Auto) 63 42-75 % Lymphocytes (%) (Auto) 29 12-44 % Monocytes (%) (Auto) 7 0-12 % Eosinophils (%) (Auto) 1 0-10 % Basophils (%) (Auto) 0 0-10 % Neutrophils # (Auto) 5.7 1.8-7.8 X 10^3 Lymphocytes # (Auto) 2.6 1.0-4.0 X 10^3 Monocytes # (Auto) 0.7 0.0-1.0 X 10^3 Eosinophils # (Auto) 0.1 0.0-0.3 10^3/uL Basophils # (Auto) 0.0 0.0-0.1 10^3/uL Sodium Level 144 135-145 MMOL/L Potassium Level 3.9 3.6-5.0 MMOL/L Chloride Level 108 H 98-107 MMOL/L Carbon Dioxide Level 24 21-32 MMOL/L Anion Gap 12 5-14 MMOL/L Blood Urea Nitrogen 14 7-18 MG/DL Creatinine 0.77 0.60-1.30 MG/DL Estimat Glomerular Filtration Rate > 60 BUN/Creatinine Ratio 18 Glucose Level 106 H 70-105 MG/DL Calcium Level 9.8 8.5-10.1 MG/DL Corrected Calcium 8.5-10.1 MG/DL Total Bilirubin 0.4 0.1-1.0 MG/DL Aspartate Amino Transf (AST/SGOT) 13 5-34 U/L Alanine Aminotransferase (ALT/SGPT) 10 0-55 U/L Alkaline Phosphatase 67 40-136 U/L Total Protein 7.7 6.4-8.2 GM/DL Albumin 4.8 H 3.2-4.5 GM/DL Amylase Level 47 25-125 U/L Lipase 15 8-78 U/L Urine Color YELLOW Urine Clarity CLEAR Urine pH 6.0 5-9 Urine Specific Myra <=1.005 1.016-1.022 Urine Protein NEGATIVE NEGATIVE Urine Glucose (UA) NEGATIVE NEGATIVE Urine Ketones NEGATIVE NEGATIVE Urine Nitrite NEGATIVE NEGATIVE Urine Bilirubin NEGATIVE NEGATIVE Urine Urobilinogen 0.2 < = 1.0 MG/DL Urine Leukocyte Esterase TRACE NEGATIVE Urine RBC (Auto) NEGATIVE NEGATIVE Urine RBC 0-2 /HPF Urine WBC 1-3 /HPF Urine Squamous Epithelial Cells 0-5 /HPF Urine Crystals NONE /LPF Urine Bacteria NEGATIVE /HPF Urine Casts NONE /LPF Urine Mucus NEGATIVE /LPF Urine Culture Indicated NO My Orders Orders - STEPH ARCHER Amylase (11/11/19 13:55) Cbc With Automated Diff (11/11/19 13:55) Comprehensive Metabolic Panel (11/11/19 13:55) Lipase (11/11/19 13:55) Ua Culture If Indicated (11/11/19 13:55) Ondansetron Injection (Zofran Injectio (11/11/19 14:30) Hyoscyamine Sl Tablet (Levsin Sl Tablet) (11/11/19 14:30) Ed Iv/Invasive Line Start (11/11/19 14:25) Ns Iv 1000 Ml (Sodium Chloride 0.9%) (11/11/19 14:25) Ct Abdomen/Pelvis W (11/11/19 14:57) Iohexol Injection (Omnipaque 350 Mg/Ml 1 (11/11/19 15:15) Received Contrast (Hold Metformin- Contr (11/11/19 15:15) Ns (Ivpb) (Sodium Chloride 0.9% Ivpb Bag (11/11/19 15:15) Us Gallbladder [id number] (11/11/19 15:58) Medications Given in ED Current Medications Medications Dose Ordered Sig/Jessica Route Start Time Stop Time Status Last Admin Dose Admin Hyoscyamine Sulfate 0.125 mg ONCE ONCE SL 11/11/19 14:30 11/11/19 14:31 DC 11/11/19 14:36 0.125 MG Iohexol 100 ml ONCE ONCE IV 11/11/19 15:15 11/11/19 15:16 DC 11/11/19 15:30 92 ML Ondansetron HCl 4 mg ONCE ONCE IVP 11/11/19 14:30 11/11/19 14:31 DC 11/11/19 14:36 4 MG Sodium Chloride 100 ml ONCE ONCE IV 11/11/19 15:15 11/11/19 15:16 DC 11/11/19 15:30 80 ML Vital Signs/I&O 11/11/19 11/11/19 14:00 17:12 Temp 36.5 36.5 Pulse 96 69 Resp 18 18 B/P (MAP) 138/88 (105) 147/78 (105) Pulse Ox 95 97 O2 Delivery Room Air Room Air Blood Pressure Mean: 105 Progress Progress Note : Time: 14:05 Progress Note Patient seen and evaluated, will labs. Normal saline 1 L per IV, Zofran 4 mg, and Levsin sublingual. 1440 labs essentially normal, awaiting UA. We'll obtain CT abdomen and pelvis. Patient reports some improvement in her symptoms medication. 1545 CT showed symptoms in the gallbladder, no other acute abnormalities. Will obtain ultrasound of the gallbladder. 1630 results of ultrasound reviewed with the patient. Recommended follow-up with a general surgeon. Discharge instructions and return precautions reviewed with her. All questions answered Diagnostic Imaging Diagonstic Imaging: CT Plain Films/CT/US/NM/MRI: abdomen, pelvis Comments NAME: RENATO WEBB [facility] REC#: [id number] PT STATUS: REG ER : 1950 PHYSICIAN: STEPH ARCHER ADMIT DATE: 11/11/19/ER Signed Date of Exam:11/11/19 CT ABDOMEN/PELVIS W PROCEDURE: CT abdomen and pelvis with contrast. TECHNIQUE: Multiple contiguous axial images were obtained through the abdomen and pelvis after administration of intravenous contrast. Auto Exposure Controls were utilized during the CT exam to meet ALARA standards for radiation dose reduction. INDICATION: Upper mid-abdominal pain. COMPARISON: CT from 01/14/2018. FINDINGS: The previously noted micronodule in the left lower lobe is stable at 6 mm. No additional pulmonary nodules in the lung bases are seen. The liver is unremarkable. There may be small stones within the gallbladder. No biliary ductal dilatation is detected. The pancreas and spleen are unremarkable. No right adrenal mass is seen. There is a low density nodule in the left adrenal gland measuring 14 mm. This is stable when compared with the prior exam and most likely represents an adenoma. The kidneys are unremarkable. The aorta and iliac vessels are heavily calcified but nonaneurysmal. No central retroperitoneal or mesenteric lymphadenopathy is detected. The small and large bowel loops are of normal caliber. No obstruction is seen. There is no free fluid or fluid collection identified. The bladder and uterus are unremarkable. No pelvic lymphadenopathy is detected. The bony structures are nonacute. IMPRESSION: 1. Cholelithiasis. 2. No acute feature in the abdomen or pelvis is identified. Dictated by: Dictated on workstation # [id number] Reviewed: Reviewed by Md Diagonstic Imaging: Ultrasound Plain Films/CT/US/NM/MRI: abdomen Comments [facility] [place] NAME: RENATO WEBB [facility] REC#: [id number] PT STATUS: REG ER : 1950 PHYSICIAN: STEPH ARCHERP ADMIT DATE: 11/11/19/ER Draft Date of Exam:11/11/19 US GALLBLADDER [id number] INDICATION: Abdominal pain. Gallbladder sonography is performed in routine fashion. The liver shows normal echogenicity with no focal lesions. Gallbladder shows no significant wall thickening. There are some small stones layering posteriorly in the gallbladder.. Common duct measured 5 mm. Pancreas appears unremarkable. IVC is patent. Right kidney measured 9.7 cm in length and shows no hydronephrosis or mass. There is no ascites. Portal vein shows hepatopetal flow. IMPRESSION: There are small gallstones layering posteriorly in the gallbladder. There is no gallbladder wall thickening or biliary dilatation. Dictated on workstation # [id number] Dict: 11/11/19 1633 Trans: 11/11/19 1637 [facility] [id number] Interpreted by: SABI MENDOSA MD Electronically signed by: Reviewed: Reviewed/Discussed Departure Impression Primary Impression: Cholelithiases Qualified Codes: K80.20 - Calculus of gallbladder without cholecystitis without obstruction Additional Impression: Abdominal pain Qualified Codes: R10.12 - Left upper quadrant pain Disposition: 01 HOME, SELF-CARE Condition: Improved Departure-Patient Inst. Decision time for Depature: 16:40 Referrals: [facility] (PCP/Family) Primary Care Physician SONU EARL BRETT D DO KIDO, TAKAAKI MD Patient Instructions: Acute Abdomen (Belly Pain), Adult (DC), Gallstones (DC) Add. Discharge Instructions: Schedule follow-up with a general surgeon. Dr. Berger, Dr. Earl or Dr. Mcgrath Eat a bland, non-spicy food. Avoid fried foods. Use the Zofran 1 tablet every 8 hours for nausea and vomiting. Alternate between ibuprofen 600 mg and Tylenol 650 mg for pain. Return to the emergency department for new, urgent health care needs. All discharge instructions reviewed with patient and/or family. Voiced understanding. Scripts Ondansetron (Ondansetron Odt) 4 Mg Tab.rapdis 4 MG PO Q6H PRN for NAUSEA/VOMITING, #8 TAB 0 Refills Prov: STEPH ARCHER 11/11/19 STEPH ARCHER Nov 11, 2019 15:19
[2019-11-11 15:43] LABS: BILIRUBIN,URINE NEGATIVE (NEGATIVE); CLARITY,URINE CLEAR; COLOR,URINE YELLOW; GLUCOSE, URINE (UA) NEGATIVE (NEGATIVE); KETONES,URINE NEGATIVE (NEGATIVE); LEUKOCYTE ESTERASE ,URINE TRACE (NEGATIVE); NITRITE,URINE NEGATIVE (NEGATIVE); PROTEIN,URINE NEGATIVE (NEGATIVE)
--- NOTE | 2019-11-11 15:54 | Diagnostic Imaging Report ---
PROCEDURE: CT abdomen and pelvis with contrast. TECHNIQUE: Multiple contiguous axial images were obtained through the abdomen and pelvis after administration of intravenous contrast. Auto Exposure Controls were utilized during the CT exam to meet ALARA standards for radiation dose reduction. INDICATION: Upper mid-abdominal pain. COMPARISON: CT from 01/14/2018. FINDINGS: The previously noted micronodule in the left lower lobe is stable at 6 mm. No additional pulmonary nodules in the lung bases are seen. The liver is unremarkable. There may be small stones within the gallbladder. No biliary ductal dilatation is detected. The pancreas and spleen are unremarkable. No right adrenal mass is seen. There is a low density nodule in the left adrenal gland measuring 14 mm. This is stable when compared with the prior exam and most likely represents an adenoma. The kidneys are unremarkable. The aorta and iliac vessels are heavily calcified but nonaneurysmal. No central retroperitoneal or mesenteric lymphadenopathy is detected. The small and large bowel loops are of normal caliber. No obstruction is seen. There is no free fluid or fluid collection identified. The bladder and uterus are unremarkable. No pelvic lymphadenopathy is detected. The bony structures are nonacute. IMPRESSION: 1. Cholelithiasis. 2. No acute feature in the abdomen or pelvis is identified. Dictated by: Dictated on workstation # [id number]
[2019-11-11 16:02] LABS: BACTERIA,URINE NEGATIVE /HPF; RBC,URINE 0-2 /HPF; SQUAMOUS EPITHELIAL CELL,UR 0-5 /HPF
--- NOTE | 2019-11-11 16:37 | Diagnostic Imaging Report ---
INDICATION: Abdominal pain. Gallbladder sonography is performed in routine fashion. The liver shows normal echogenicity with no focal lesions. Gallbladder shows no significant wall thickening. There are some small stones layering posteriorly in the gallbladder.. Common duct measured 5 mm. Pancreas appears unremarkable. IVC is patent. Right kidney measured 9.7 cm in length and shows no hydronephrosis or mass. There is no ascites. Portal vein shows hepatopetal flow. IMPRESSION: There are small gallstones layering posteriorly in the gallbladder. There is no gallbladder wall thickening or biliary dilatation. Dictated by: Dictated on workstation # [id number]
[2019-11-11] MEDS ORDERED: ONDA4TAB11 PO (16:54)
[2019-11-11 17:12] VITALS: BP 147/78
== END 2019-11-11 17:12 | disposition home or self-care (01) ==
LOC: EDUNIT# 13:51 → ER 13:53
DX: K80.20 Calculus of gallbladder without cholecystitis without obstruction (principal); K21.9 Gastro-esophageal reflux disease without esophagitis; E78.00 Pure hypercholesterolemia, unspecified; E11.9 Type 2 diabetes mellitus without complications; E03.9 Hypothyroidism, unspecified; Z90.49 Acquired absence of other specified parts of digestive tract; Z79.52 Long term (current) use of systemic steroids; Z77.22 Contact with and (suspected) exposure to environmental tobacco smoke (acute) (chronic); Z98.51 Tubal ligation status
CPT/HCPCS: 36415; 74177; 76705; 80053; 81000; 82150; 83690; 85025; 96374

== ENCOUNTER 2019-11-30 05:28 | Outpatient (CLI) | payer MEDICARE, MEDICAID ==
[~2019-11-30] VITALS: Ht 160 cm; Wt 71.8 kg
[~2019-11-30 05:28] MED LIST changes: +ONDA4TAB11 PO
[2019-11-30 10:36] VITALS: BP 132/63
[2019-11-30] MEDS ORDERED: OMEG1CAP58 PO (10:58)
[2019-11-30] MEDS ORDERED: METF-397 PO (10:58)
[2019-11-30] MEDS ORDERED: SUCR1TAB PO (10:58)
[2019-11-30] MEDS ORDERED: OMEP20CA13 PO (10:58)
[2019-11-30] MEDS ORDERED: LEVO75TA6 PO (10:58)
[2019-11-30] MEDS ORDERED: SIMV80TA21 PO (10:58)
== END 2019-11-30 11:03 | disposition home or self-care (01) ==
LOC: PREOP 05:28
PROVIDERS: ATTEND Surgery
DX: Z01.818 Encounter for other preprocedural examination (principal)
CPT/HCPCS: 87081

== ENCOUNTER 2019-12-04 08:20 | Day surgery (SDC) | payer MEDICAID, MEDICARE ==
[2019-12-04] VITALS (12 sets, daily range): BP systolic 100–166; BP diastolic 67–112
[~2019-12-04] VITALS: Ht 160 cm; Wt 71.8 kg
[~2019-12-04 08:20] MED LIST changes: +LEVO75TA6 PO; +METF-397 PO; +OMEG1CAP58 PO; +OMEP-280; +OMEP-280 PO; -OMEP20CA13; +SIMV80TA21 PO; +SUCR1TAB PO
[2019-12-04] MEDS ORDERED: ceFAZolin 2 GM/50 ML NS 50 ML IV ONE (08:30)
[2019-12-04] MEDS: LACTATED RINGERS 1,000 ML IV PRN ×2 (08:51→11:24)
[2019-12-04] MEDS ORDERED: IOPAMIDOL 61% 30 ML (ISOVUE 300) VIAL IV ONE (08:56)
[2019-12-04] MEDS ORDERED: BUP/EPI 0.5% 1:200,000 (SENSORCAINE) 30 ML VIAL ONE (08:56)
--- NOTE | 2019-12-04 09:05 | NUR ---
Initial visit with eugene baca and her , Yasmani. The pt said she is ready to have this procedure done and appreciated having someone accompany them to her room and visit. She said our visit was reassuring.
[2019-12-04] MEDS ORDERED: LIDOCAINE PF 2% 5 ML (XYLOCAINE) VIAL ONE (09:24)
[2019-12-04] MEDS ORDERED: SEVOFLURANE (ULTANE) 15 ML INHAL SOLN ONE ×4 (09:24→10:59)
[2019-12-04] MEDS ORDERED: proPOfol 200 MG/20 ML (DIPRIVAN) VIAL IV ONE (09:24)
[2019-12-04] MEDS ORDERED: DEXAMETHASONE 10 MG/ML (DECADRON) 1 ML VIAL ONE (09:24)
[2019-12-04] MEDS ORDERED: ONDANSETRON 4 MG/2 ML (SDV) Z0FRAN ONE (09:24)
[2019-12-04] MEDS ORDERED: fentaNYL INJECTION 100 MCG/2 ML AMP ONE (09:24)
[2019-12-04] MEDS ORDERED: MIDAZOLAM 2 MG/2 ML (VERSED) VIAL ONE (09:25)
[2019-12-04] MEDS ORDERED: ROCURONIUM 10 MG/ML 5 ML SYRINGE IV ONE (09:25)
--- NOTE | 2019-12-04 09:30 | Progress Note-Pre Operative ---
Pre-Operative Progress Note H&P Reviewed The H&P was reviewed, patient examined and no changes noted. Time Seen by Provider: 09:21 Date H&P Reviewed: Dec 04, 2019 Time H&P Reviewed: 09:22 Pre-Operative Diagnosis: Cholelithiasis/Cholecystitis, Chronic Gastritis SONU EARL DO Dec 04, 2019 09:30
--- NOTE | 2019-12-04 11:04 | Progress Note-Post Operative ---
Post-Operative Progess Note Surgeon (s)/Guard Driver (s) Surgeon SONU EARL DO Guard Driver: Alcides Pre-Operative Diagnosis Cholelithiasis/Cholecystitis, Chronic Gastritis Post-Operative Diagnosis same plus Esophagitis Hiatal Hernia Procedure & Operative Findings Date of Procedure 12/04/19 Procedure Performed/Findings EGD with bx LAp neli with IOC Anesthesia Type GET Estimated Blood Loss Estimated blood loss (mL): scant Specimens/Packing Specimens Removed antral bx Body of stomach bx GE jxn bx GB and contents SONU EARL DO Dec 04, 2019 11:04
[2019-12-04] MEDS ORDERED: ACHD5005 PO (11:05)
--- NOTE | 2019-12-04 11:06 | Endoscopy Discharge Instruct ---
Endo Procedure/Findings Findings 1.: Gastritis 2.: Hiatal Hernia 3.: Other Findings (Esophagitis) Discharge Instructions - Activity: You might feel a little sleepy until tomorrow. This is due to the medicine you received to relax you. Until tomorrow, you should: NOT drive a car, operate machinery or power tools. NOT drink any alcoholic beverages. NOT make any important decisions or sign importortant papers. Do not return to work until tomorrow, unless otherwise instructed. Resume previous activities tomorrow. Diet: Start by taking liquids. If you tolerate liquids, advance to solid food. 1.: EGD in 1 year Notify Physician - If you experience excessive bleeding, unusual abdominal pain, fever, or chest pain, contact your doctor immediately. SONU EARL DO Dec 04, 2019 11:06
--- NOTE | 2019-12-04 11:06 | Discharge Inst-Surgical ---
Discharge Inst-Surgical Depart Medication/Instructions New, Converted or Re-Newed RX: RX Given to Pt/Family Patient Instructions Follow up Appt: Make appointment for 1 week. [phone] Instructions: No lifting greater than 20 pounds. No strenuous activity. May shower in 24 hours, no tub bath or soaking. Use incentive spirometer at home as directed. No Smoking Skin/Wound Care: May remove bandages in am. You need to leave the Dermabond on incision it will fall off on it's own. Symptoms to Report: Appetite Changes, Extremity Discoloration, Numbness/Tingling, Swelling Increased, Bleeding Excessive, Eyesight Changes, Pain Increased, Urine Color Change, Constipation(Persistent), Fever over 101 degree F, Pain/Pressure in chest, Urinating Difficulty, Cough Up/Vomit Blood, Heart Beat Irreg/Pounding, Pain/Pressure in jaw, Cramps in feet or legs, Lightheadedness, Pain/Pressure in shoulder, Diarrhea(Persistent), Memory Changes Suddenly, Questions/Concerns, Weight gain consecutive days, Dizziness/Fainting, Nausea/Vomiting, Shortness of Breath, Weight gain over 2 pounds If questions or concerns contact your physician Or seek help at emergency department. Activity Activity as Tolerated: Yes Activity Instructions: Avoid Stress to Incision Driving Instructions: No Driving/Refer to Dr. Partida Discharge Diet: Avoid Fatty Foods, Low Fat/Low Cholesterol Diet After 24 Hours: Clear Liquid if Nauseous If Any Problems/Questions/Issu: Contact Your Physician, Go to Emergency Room Skin/Wound Care Infection Signs and Symptoms: Increased Redness, Foul Odor of Wound, Increased Drainage, Skin Itchy or Has a Rash, Increased Swelling, Temperature Above 101 F Wound Care Comment: heating pad to shoulder or neck tonight for pain Stitches/Jewel/Dermabond Dis: Dermabond Ice Pack: Ice On and Off Site SONU EARL DO Dec 04, 2019 11:06
--- NOTE | 2019-12-04 11:11 | Diagnostic Imaging Report ---
INDICATION: Fluoroscopy during intraoperative cholangiogram. Patient has cholelithiasis. Fluoroscopy was provided in OR during intraoperative cholangiogram. 9 seconds of fluoroscopic time was utilized. Images demonstrate contrast being injected via the cystic duct remnant. Intrahepatic and extrahepatic bile ducts are normal caliber. No filling defects are seen to suggest retained stone. Contrast flows into the duodenum. IMPRESSION: Fluoroscopy during intraoperative cholangiogram. Dictated by: Dictated on workstation # [id number]
--- NOTE | 2019-12-04 11:18 | Anesthesia-General Post-Op ---
General Patient Condition Mental Status/LOC: Same as Preop Cardiovascular: Satisfactory Nausea/Vomiting: Absent Respiratory: Satisfactory Pain: Controlled Complications: Absent Post Op Complications Complications None Follow Up Care/Instructions Patient Instructions None needed. Anesthesia/Patient Condition Patient Condition Patient is doing well, no complaints, stable vital signs, no apparent adverse anesthesia problems. No complications reported per nursing. LORRI GALARZA CRNA Dec 04, 2019 11:18
[2019-12-04] MEDS ORDERED: morphine INJ 10 MG/ML 1ML (SYR OR VIAL) ONE (11:19)
[2019-12-04] MEDS ORDERED: morphine INJ 10 MG/ML 1ML (SYR OR VIAL) IVP ONE (11:30)
[2019-12-04] MEDS ORDERED: ONDANSETRON 4 MG/2 ML (SDV) Z0FRAN IVP PRN (11:30)
[2019-12-04] MEDS ORDERED: MEPERIDINE (DEMEROL) INJ 50 MG/ML IVP ONE (11:30)
[2019-12-04] MEDS ORDERED: HYDROcodone/APAP 5 MG/325 MG (LORTAB) TAB PO ONE (12:36)
[2019-12-04] MEDS ORDERED: HYDROcodone/APAP 5 MG/325 MG (LORTAB) TAB ONE (12:38)
--- NOTE | 2019-12-04 14:15 | NUR ---
INCENTIVE TEACHING COMPLETED BY THIS RN.
--- NOTE | 2019-12-04 16:00 | OPERATIVE REPORT ---
DATE OF SERVICE: PREOPERATIVE DIAGNOSES: Cholelithiasis, cholecystitis as well as chronic gastritis. POSTOPERATIVE DIAGNOSES: Gastritis, esophagitis, hiatal hernia and cholelithiasis, cholecystitis. PROCEDURES: 1. EGD with biopsy. 2. Laparoscopic cholecystectomy, intraoperative cholangiogram. SURGEON: Cas Kingsley DO. FIELD SALES TRAINER: Alex Mcgrath DO ANESTHESIA: General endotracheal tube. SPECIMEN: Biopsy from the antrum, biopsy of body of stomach, biopsy of the GE junction and then gallbladder. BLOOD LOSS: Scant. FLUIDS: Per anesthesia. POSTOPERATIVE CONDITION: Stable. INDICATION FOR PROCEDURE: The patient is a 69-year-old female who has been having some abdominal pain, right upper quadrant, was in the ER and had ultrasound showed stones and some chronic gastritis, needed an EGD and cholecystectomy. FINDINGS: The patient had some gastritis, esophagitis and a small hiatal hernia. She also had some mild adhesions to the gallbladder which is indicative of cholecystitis attacks. PROCEDURE NOTE: After informed consent was obtained, the patient was brought to the operating room, placed on the table in supine position. She was intubated and started with the EGD. Inserted the scope down the mouth through the esophagus into the stomach. In the stomach, noted some gastritis, pushed into the duodenum. Duodenum looked fine. Pulled back and did a biopsy of the antrum. Retroflexed the scope. Did a biopsy of body of stomach and then looked up, saw a small hiatal hernia, took a picture and then pulled the scope into the GE junction. There were some changes at the Z line, did a biopsy of the GE junction and then pushed the scope back into the stomach and suctioned this out and then pulled the scope up the esophagus out of the mouth. The patient was then sterilely prepped and draped in normal fashion. We then started the gallbladder portion of the procedure. Made supraumbilical incision after first infiltrating with local lidocaine. I made an incision with #11 blade, carried down through the skin and subcutaneous tissue, deepened down to subcutaneous tissue with Bovie electrocautery down to the fascia. Fascia incised with Bovie electrocautery, bluntly entered the abdomen, swept a finger around, placed 0 Vicryl [id number] suture, then placed a 11 mm trocar port under direct visualization. Created pneumoperitoneum and then placed 3 more ports in normal fashion using local lidocaine, 11 blade for stab incision and the VersaStep system, all done under direct visualization, one subxiphoid and two in the right upper quadrant. The patient was placed slightly reverse Trendelenburg and rotated left, able to visualize the gallbladder, some mild adhesions to it, grasped at the fundus, took in superior direction, then grasped down Neeraj's pouch and pulled in inferolateral direction, started dissecting out cystic duct and cystic artery, able to get around the cystic duct and cystic artery. Cut the cystic duct alf through Metzenbaum scissors. Placed a cholangiogram catheter and shot a cholangiogram. Good spillage of dye down the cystic duct in to the common bile duct and then into the small intestine. Then removed the cholangiogram catheter, placed 2 clips proximally on the cystic duct and cut the cystic duct and cystic artery with Metzenbaum scissors, then started removing the gallbladder from the bed of liver with L-hook cautery. Once it was completely off the bed of liver, placed a bag in the abdomen, placed the gallbladder in the bag and then removed this through the supraumbilical incision. Placed the port back in the abdomen, copiously irrigated with normal saline, suctioned this out, took a picture and then placed patient flat. Removed all ports under direct visualization and allowed the pneumoperitoneum to escape and then closed the supraumbilical incision, closing the fascia with 0 Vicryl suture previously placed. Copiously irrigated all incisions with normal saline, then closed the three small 5 mm incisions with a single 4-0 undyed Monocryl subcuticular stitch. Closed the supraumbilical incision with 3 interrupted 4-0 undyed Monocryl subcuticular stitches. Area was cleaned and dried. Dermabond placed as well as Band-Aids. The patient tolerated the procedure. Sponge, instrument and needle count correct at the end of the case. Dr. Mcgrath assisted in the gallbladder portion of the case helping to make incisions, close incisions, identify anatomy and hold anatomy out of way. Job ID: [id number] DocumentID: [id number] Dictated Date: 12/04/2019 11:02:58 Manufacturing Team Member Date: 12/04/2019 15:58:59 Dictated By: DO REZA ALMANZA
== END 2019-12-04 14:40 | disposition home or self-care (01) ==
LOC: SDC 08:20
PROVIDERS: ATTEND Surgery
DX: K80.10 Calculus of gallbladder with chronic cholecystitis without obstruction (principal); K29.50 Unspecified chronic gastritis without bleeding; K21.0 Gastro-esophageal reflux disease with esophagitis; K44.9 Diaphragmatic hernia without obstruction or gangrene; K82.8 Other specified diseases of gallbladder; E11.9 Type 2 diabetes mellitus without complications; I10 Essential (primary) hypertension; E78.5 Hyperlipidemia, unspecified; F17.210 Nicotine dependence, cigarettes, uncomplicated; Z79.84 Long term (current) use of oral hypoglycemic drugs; Z79.899 Other long term (current) drug therapy
CPT/HCPCS: 82962

== ENCOUNTER 2020-08-05 23:28 | Emergency (ER) | payer MEDICARE ==
[~2020-08-05] VITALS: Ht 160 cm; Wt 66.2 kg
[~2020-08-05 23:28] MED LIST changes: +ACHD5005 PO; -MECL-106 PO; +MECL-149 PO; -OMEP-280; -OMEP-280 PO; +OMEP20CA18; +OMEP20CA18 PO
[2020-08-05] MEDS ORDERED: LACTATED RINGERS 1,000 ML IV ONE (23:45)
[2020-08-06] MEDS ORDERED: KETOROLAC 30 MG/ML VIAL IVP ONE
--- NOTE | 2020-08-06 00:01 | ED Abdominal Pain ---
General Chief Complaint: Abdominal/GI Problems Stated Complaint: ABD PAIN Nursing Triage Note: PT TO ROOM 06 VIA W/C WITH ABD PAIN X1 MONTH. PT REPORTS HAVING GALLBLADDER REMOVED Nov AND HAS BEEN HAVING PAIN FREQUENTLY SINCE THEN. PT STATES THAT SHE SEEN HER PCP X2 WEEKS AGO AND WAS GIVEN PAIN MEDS AND WAS TOLD THAT THEY WOULD ORDER A CT. PT STATES SHE HAS NOT HEARD BACK FROM PCP SINCE THEN. Sepsis Screen: No Definite Risk Source of Information: Patient History of Present Illness Date Seen by Provider: Aug 05, 2020 Time Seen by Provider: 23:45 Initial Comments PT ARRIVES VIA POV FROM HOME C/O ABDOMINAL PAIN --EPIGASTRIC AND RUQ PAIN STATES PAIN IS CONSTANT, BUT HAS SEVERE "SPASMS" AT TIMES PAIN WORSE FOR AT LEAST A MONTH--HAS ONGOING PAIN IN THIS AREA FOR A LONG TIME, HAD CHOLECYSTECTOMY DONE IN NOVEMBER OF THIS YEAR BY DR. EARL. HAS CONTINUED TO HAVE PAIN IN THIS AREA OFF AND ON SINCE SURGERY, BUT HAS BEEN MUCH WORSE AND CONSTANT FOR OVER A MONTH + NAUSEA, NO VOMITING. DOES NOT HAVE AN APPETITE--HAD JELLO AT NOON HAD NORMAL BM TODAY NO URINARY SYMPTOMS NO FEVER SAW CARLOS A SRINIVASAN 2 WEEKS AGO FOR THIS PROBLEM. NO TESTS WERE DONE, PER PT. PT WAS GIVEN RX FOR TRAMADOL--STATES "IT DOESN'T HELP AND MAKES ME SICK" --TOOK 1 PILL TODAY AROUND NOON PT STATES THAT THEY WERE GOING TO ORDER A CT SCAN, BUT PT HAS NOT FOLLOWED UP ABOUT HAVING THAT DONE PT HAS NOT ATTEMPTED TO CONTACT DR. EARL AT ANY TIME FOR THIS PT ALSO HAD APPENDECTOMY IN THE PAST PCP: [facility], CARLOS A SRINIVASAN Allergies and Home Medications Allergies Coded Allergies: No Known Drug Allergies (Unverified , 11/30/19) Home Medications Dicyclomine HCl 20 Mg Tablet, 20 MG PO Q6H Prescribed by: RENALDO SIGALA on 08/06/20 0158 Hydrocodone Bit/Acetaminophen 1 Tab Tab, 1 TAB PO Q6H PRN for PAIN-MODERATE Prescribed by: SONU EARL on 12/04/19 1105 Hyoscyamine Sulfate 0.125 Mg Tab.subl, 0.25 MG SL Q4H Prescribed by: RENALDO SIGALA on 08/06/20 0158 Levothyroxine Sodium 75 Mcg Tablet, 75 MCG PO DAILY, (Reported) Metformin HCl 500 Mg Tablet, 500 MG PO DAILY, (Reported) Tillman-3 Fatty Acids/Fish Oil 1 Each Capsule, 1 EACH PO BID, (Reported) Omeprazole 20 Mg Capsule.dr, 20 MG PO DAILY, (Reported) Ondansetron 8 Mg Tab.rapdis, 8 MG PO Q6H Prescribed by: RENALDO SIGALA on 08/06/20 0158 Simvastatin 80 Mg Tablet, 80 MG PO DAILY, (Reported) Sucralfate 1 Gm Tablet, 1 GM PO QID, (Reported) Patient Home Medication List Home Medication List Reviewed: Yes Review of Systems Review of Systems Constitutional: no symptoms reported; No chills, No fever EENTM: No Symptoms Reported Respiratory: No Symptoms Reported Cardiovascular: No Symptoms Reported; Denies Chest Pain Gastrointestinal: See HPI, Abdominal Pain; Denies Constipated, Denies Diarrhea; Nausea, Poor Appetite, Poor Fluid Intake; Denies Vomiting Genitourinary: No Symptoms Reported Musculoskeletal: no symptoms reported; No back pain Skin: no symptoms reported Psychiatric/Neurological: No Symptoms Reported Endocrine: No Symptoms Reported Hematologic/Lymphatic: No Symptoms Reported Past Zflpvpj-Iissui-Ohaosa Hx Past Med/Social Hx: Reviewed and Corrections made Patient Social History Alcohol Use: Denies Use Recreational Drug Use: No Smoking Status: Current Everyday Smoker (1/2 PPD) Type Used: Cigarettes 2nd Hand Smoke Exposure: Yes Recent Foreign Travel: No Contact w/Someone Who Travel: No Recent Infectious Disease Expo: No Recent Hopitalizations: No Physical Abuse: No Sexual Abuse: No Mistreated: No Fear: No Seasonal Allergies Seasonal Allergies: No Past Medical History Surgeries: Yes Appendectomy, Gallbladder, Tonsillectomy, Tubal Ligation Respiratory: No Currently Using CPAP: No Currently Using BIPAP: No Cardiac: Yes High Cholesterol Neurological: Yes 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 /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 Genitourinary: No Gastrointestinal: Yes (S/P SHERI AND APPY) Gastroesophageal Reflux, Chronic Constipation, Gall Bladder Disease Musculoskeletal: No Arthritis Endocrine: Yes Hypothyroidsim, Diabetes, Non-Insulin dep HEENT: No (GLASSES, DENTURES) Loss of Vision: Denies Hearing Impairment: Denies Cancer: No Psychosocial: No Integumentary: No Blood Disorders: No Adverse Reaction/Blood Tranf: No (N/A) Physical Exam Vital Signs Vital Signs - First Documented 08/05/20 23:44 Temp 36.9 Pulse 75 Resp 22 B/P (MAP) 149/77 (101) O2 Delivery Room Air Capillary Refill : Less Than 3 Seconds Height/Weight/BMI Height: 5'2.00" Weight: 150lbs. oz. [id number]; 25.00 BMI Method:Estimated General Appearance: WD/WN, no apparent distress, other (LOOKS UNCOMFORTABLE) HEENT: PERRL/EOMI; No scleral icterus (R), No scleral icterus (L) Neck: normal inspection Respiratory: normal breath sounds, no respiratory distress, no accessory muscle use Cardiovascular: normal peripheral pulses, regular rate, rhythm, no murmur Gastrointestinal: no organomegaly, no pulsatile mass, abnormal bowel sounds (HYPERACTIVE), distended, tenderness (DIFFUSE TENDERNESS, BUT MOST TENDER IN RUQ AND EPIGASTRIC AREA) Extremities: normal inspection, no pedal edema, normal capillary refill Back: normal inspection, no CVA tenderness 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, no motor/sensory deficits, alert, oriented x 3 Skin: normal color, warm/dry; No jaundice, No rash Progress/Results/Core Measures Results/Orders Lab Results Laboratory Tests Test 08/06/20 00:00 08/06/20 00:37 Range/Units White Blood Count 9.4 4.3-11.0 10^3/uL Red Blood Count 4.64 4.35-5.85 10^6/uL Hemoglobin 13.5 11.5-16.0 G/DL Hematocrit 42 35-52 % Mean Corpuscular Volume 89 80-99 FL Mean Corpuscular Hemoglobin 29 25-34 PG Mean Corpuscular Hemoglobin Concent 33 32-36 G/DL Red Cell Distribution Width 14.4 10.0-14.5 % Platelet Count 341 130-400 10^3/uL Mean Platelet Volume 9.1 7.4-10.4 FL Neutrophils (%) (Auto) 60 42-75 % Lymphocytes (%) (Auto) 32 12-44 % Monocytes (%) (Auto) 7 0-12 % Eosinophils (%) (Auto) 1 0-10 % Basophils (%) (Auto) 0 0-10 % Neutrophils # (Auto) 5.6 1.8-7.8 X 10^3 Lymphocytes # (Auto) 3.0 1.0-4.0 X 10^3 Monocytes # (Auto) 0.7 0.0-1.0 X 10^3 Eosinophils # (Auto) 0.1 0.0-0.3 10^3/uL Basophils # (Auto) 0.0 0.0-0.1 10^3/uL Sodium Level 141 135-145 MMOL/L Potassium Level 3.8 3.6-5.0 MMOL/L Chloride Level 105 98-107 MMOL/L Carbon Dioxide Level 24 21-32 MMOL/L Anion Gap 12 5-14 MMOL/L Blood Urea Nitrogen 11 7-18 MG/DL Creatinine 0.81 0.60-1.30 MG/DL Estimat Glomerular Filtration Rate > 60 BUN/Creatinine Ratio 14 Glucose Level 102 70-105 MG/DL Calcium Level 9.7 8.5-10.1 MG/DL Corrected Calcium 9.5 8.5-10.1 MG/DL Total Bilirubin 0.5 0.1-1.0 MG/DL Aspartate Amino Transf (AST/SGOT) 12 5-34 U/L Alanine Aminotransferase (ALT/SGPT) 9 0-55 U/L Alkaline Phosphatase 63 40-136 U/L Total Protein 7.3 6.4-8.2 GM/DL Albumin 4.3 3.2-4.5 GM/DL Amylase Level 45 25-125 U/L Lipase 10 8-78 U/L Urine Color YELLOW Urine Clarity CLEAR Urine pH 5.5 5-9 Urine Specific [place] <=1.005 1.016-1.022 Urine Protein NEGATIVE NEGATIVE Urine Glucose (UA) NEGATIVE NEGATIVE Urine Ketones NEGATIVE NEGATIVE Urine Nitrite NEGATIVE NEGATIVE Urine Bilirubin NEGATIVE NEGATIVE Urine Urobilinogen 0.2 < = 1.0 MG/DL Urine Leukocyte Esterase NEGATIVE NEGATIVE Urine RBC (Auto) NEGATIVE NEGATIVE Urine RBC 0-2 /HPF Urine WBC 2-5 /HPF Urine Squamous Epithelial Cells 2-5 /HPF Urine Crystals NONE /LPF Urine Bacteria FEW H /HPF Urine Casts NONE /LPF Urine Mucus NEGATIVE /LPF Urine Culture Indicated YES My Orders Orders - RENALDO SIGALA DO Ed Iv/Invasive Line Start (08/05/20 23:45) Amylase (08/05/20 23:45) Cbc With Automated Diff (08/05/20 23:45) Comprehensive Metabolic Panel (08/05/20 23:45) Lipase (08/05/20 23:45) Ua Culture If Indicated (08/05/20 23:45) Ed Iv/Invasive Line Start (08/05/20 23:45) Lactated Ringers (Lr 1000 Ml Iv Solution (08/05/20 23:45) Ketorolac Injection (Toradol Injection) (08/06/20 00:00) Ct Abdomen/Pelvis W (08/06/20 00:51) Acute Abd Series (08/06/20 00:51) Urine Culture (08/06/20 00:37) Iohexol Injection (Omnipaque 350 Mg/Ml 1 (08/06/20 02:00) Received Contrast (Hold Metformin- Contr (08/06/20 02:00) Sodium Chloride Flush (Catheter Flush Sy (08/06/20 02:00) Ns (Ivpb) (Sodium Chloride 0.9% Ivpb Bag (08/06/20 02:00) Dicyclomine Capsule (Bentyl Capsule) (08/06/20 02:00) Rx-Hyoscyamine Tab (Rx-Levsin Sl) (08/06/20 01:58) Rx-Ondansetron Po (Rx-Zofran Po) (08/06/20 01:58) Medications Given in ED Current Medications Medications Dose Ordered Sig/Jessica Route Start Time Stop Time Status Last Admin Dose Admin Iohexol 100 ml ONCE ONCE IV 08/06/20 02:00 08/06/20 02:01 DC 08/06/20 02:00 83 ML Ketorolac Tromethamine 30 mg ONCE ONCE IVP 08/06/20 00:00 08/06/20 00:01 DC 08/06/20 00:04 30 MG Lactated Ringer's 1,000 ml @ 0 mls/hr Q0M ONCE IV 08/05/20 23:45 08/05/20 23:47 DC 08/06/20 00:04 999 MLS/HR Sodium Chloride 10 ml NEEDED PRN IV 08/06/20 02:00 08/06/20 02:25 DC 08/06/20 02:00 10 ML Sodium Chloride 100 ml ONCE ONCE IV 08/06/20 02:00 08/06/20 02:01 DC 08/06/20 02:00 80 ML Vital Signs/I&O 08/05/20 23:44 Temp 36.9 Pulse 75 Resp 22 B/P (MAP) 149/77 (101) O2 Delivery Room Air Blood Pressure Mean: 101 Progress Progress Note : Progress Note SYMPTOMS IMPROVED AT DISMISSAL Diagnostic Imaging Comments ABDOMEN XRAYS--NO ACUTE PROCESS, PENDING RADIOLOGIST REVIEW CT ABDOMEN/PELVIS--NO ACUTE PROCESS, MILD HIATAL HERNIA WITH SOME REFLUS. PER [facility] VIA FAX AT [phone] Reviewed: Reviewed by Me Departure Impression Primary Impression: Abdominal pain Disposition: HOME, SELF-CARE Condition: Improved Departure-Patient Inst. Referrals: [facility]/ (PCP) Primary Care Physician SUDHEER SRINIVASAN (Family) Primary Care Physician SONU EARL DO Patient Instructions: Severe Abdominal Pain, Adult (DC) Add. Discharge Instructions: CLEAR LIQUIDS--WATER, BROTH, JELLO, GATORADE NO FOOD UNTIL YOUR SYMPTOMS ARE BETTER, AND YOU ARE NOT HAVING PAIN WHEN YOU ARE BETTER, ADD BRATS DIET TO CLEAR LIQUIDS--BANANAS, RICE, APPLESAUCE, TOAST, SALTINES CONTINUE YOUR CURRENT MEDICATIONS INCLUDING OMEPRAZOLE AND SUCRALFATE FOLLOW UP WITH DR. EARL NEXT WEEK FOR FURTHER CARE--CALL ON SATURDAY TO SCHEDULE APPOINTMENT All discharge instructions reviewed with patient and/or family. Voiced understanding. Scripts Dicyclomine HCl (Dicyclomine HCl) 20 Mg Tablet 20 MG PO Q6H for Abdominal Pain, #20 TAB Prov: RENALDO SIGALA DO 08/06/20 Hyoscyamine Sulfate (Levsin-Sl) 0.125 Mg Tab.subl 0.25 MG SL Q4H, #20 TAB Prov: RENALDO SIGALA DO 08/06/20 Ondansetron (Ondansetron Odt) 8 Mg Tab.rapdis 8 MG PO Q6H, #10 TAB Prov: RENALDO SIGALA DO 08/06/20 RENALDO SIGALA DO Aug 06, 2020 00:01
[2020-08-06 00:18] LABS: BASOPHILS % (AUTO) 0 % (0-10); EOSINOPHILS # (AUTO) 0.1 10^3/uL (0.0-0.3); EOSINOPHILS % (AUTO) 1 % (0-10); HEMATOCRIT 42 % (35-52); HEMOGLOBIN 13.5 G/DL (11.5-16.0); LYMPHOCYTES % (AUTO) 32 % (12-44); MEAN CORPUSCULAR HEMOGLOBIN 29 PG (25-34); MEAN CORPUSCULAR HGB CONC 33 G/DL (32-36); MEAN CORPUSCULAR VOLUME 89 FL (80-99); MEAN PLATELET VOLUME 9.1 FL (7.4-10.4); MONOCYTES # (AUTO) 0.7 X 10^3 (0.0-1.0); MONOCYTES % (AUTO) 7 % (0-12); NEUTROPHILS # (AUTO) 5.6 X 10^3 (1.8-7.8); NEUTROPHILS % (AUTO) 60 % (42-75); PLATELET COUNT 341 10^3/uL (130-400); WHITE BLOOD COUNT 9.4 10^3/uL (4.3-11.0)
[2020-08-06 00:31] LABS: ALBUMIN 4.3 GM/DL (3.2-4.5); CHLORIDE 105 MMOL/L (98-107); POTASSIUM 3.8 MMOL/L (3.6-5.0); SODIUM 141 MMOL/L (135-145)
[2020-08-06 00:32] LABS: AMYLASE 45 U/L (25-125); CALCIUM 9.7 MG/DL (8.5-10.1)
[2020-08-06 00:33] LABS: GLUCOSE 102 MG/DL (70-105)
[2020-08-06 00:34] LABS: TOTAL PROTEIN 7.3 GM/DL (6.4-8.2)
[2020-08-06 00:35] LABS: BILIRUBIN,TOTAL 0.5 MG/DL (0.1-1.0); CARBON DIOXIDE 24 MMOL/L (21-32)
[2020-08-06 00:37] LABS: ALKALINE PHOSPHATASE 63 U/L (40-136); CREATININE SERUM 0.81 MG/DL (0.60-1.30); GFR ESTIMATED > 60
[2020-08-06 00:38] LABS: BUN/CREATININE RATIO 14
[2020-08-06 00:40] LABS: ALANINE AMINOTRANSFERASE 9 U/L (0-55)
[2020-08-06 00:41] LABS: LIPASE 10 U/L (8-78)
[2020-08-06 00:46] LABS: BILIRUBIN,URINE NEGATIVE (NEGATIVE); CLARITY,URINE CLEAR; COLOR,URINE YELLOW; GLUCOSE, URINE (UA) NEGATIVE (NEGATIVE); KETONES,URINE NEGATIVE (NEGATIVE); LEUKOCYTE ESTERASE ,URINE NEGATIVE (NEGATIVE); NITRITE,URINE NEGATIVE (NEGATIVE); PH,URINE 5.5 (5-9); PROTEIN,URINE NEGATIVE (NEGATIVE)
[2020-08-06 01:07] LABS: BACTERIA,URINE FEW /HPF; RBC,URINE 0-2 /HPF
[2020-08-06] MEDS ORDERED: RX-HYOSCYAMINE 0.125 MG SL (LEVSIN) PPK#6 SL STA (01:58)
[2020-08-06] MEDS ORDERED: ONDA8TAB13 PO (01:58)
[2020-08-06] MEDS ORDERED: RX-ONDANSETRON 4 MG ODT (ZOFRAN) PPK #4 PO STA (01:58)
[2020-08-06] MEDS ORDERED: DICY20TA10 PO (01:58)
[2020-08-06] MEDS ORDERED: HYOS0.1283 SL (01:58)
[2020-08-06] MEDS ORDERED: DICYCLOMINE 10 MG (BENTYL) CAP PO SCH (02:00)
[2020-08-06] MEDS ORDERED: NS 100 ML (IVPB) BAG IV ONE (02:00)
[2020-08-06] MEDS ORDERED: IOHEXOL 350 MG/ML 100 ML (OMNIPAQUE 350) VIAL IV ONE (02:00)
[2020-08-06] MEDS ORDERED: CATHETER FLUSH 10 ML SYR IV PRN (02:00)
[2020-08-06] MEDS ORDERED: HOLD METFORMIN - RECEIVED CONTRAST 20 ML VIAL IV SCH (02:00)
[2020-08-06 02:21] VITALS: BP 133/72
--- NOTE | 2020-08-06 07:15 | Diagnostic Imaging Report ---
Indication: Abdominal pain PA chest, supine and upright abdominal images are obtained Lung bases are clear. There is no intraperitoneal free air. Gallbladder surgically absent. Bowel gas pattern is normal. There are no pathologic masses calcifications. IMPRESSION: No acute abnormalities in the abdomen Dictated by: Dictated on workstation # [id number]
--- NOTE | 2020-08-06 07:39 | Diagnostic Imaging Report ---
PROCEDURE: CT abdomen and pelvis with contrast. TECHNIQUE: Multiple contiguous axial images were obtained through the abdomen and pelvis after administration of intravenous contrast. Auto Exposure Controls were utilized during the CT exam to meet ALARA standards for radiation dose reduction. INDICATION: Abdominal pain for one month. Comparison is made with prior CT from 11/11/2019. Lung bases demonstrate a stable subpleural nodule left lower lobe measuring 6 mm. No discrete liver mass is detected. Gallbladder surgically absent. No biliary ductal dilatation is seen. The pancreas and spleen are unremarkable. No discrete adrenal mass is detected. Kidneys are unremarkable. Aorta and iliac vessels are calcified but non-aneurysmal. The small and large bowel loops are normal in caliber. No obstruction is identified. There is diverticulosis of the sigmoid but no evidence of acute diverticulitis. No free fluid or fluid collection is identified. The bladder and uterus are unremarkable. No inflammatory changes are seen. Bony structures are nonacute. IMPRESSION: 1. Uncomplicated colonic diverticulosis. 2. No acute feature is detected. Dictated by: Dictated on workstation # [id number]
== END 2020-08-06 02:21 | disposition home or self-care (01) ==
LOC: EDUNIT# 23:28 → ER 23:30
DX: R10.11 Right upper quadrant pain (principal); R10.13 Epigastric pain; F17.210 Nicotine dependence, cigarettes, uncomplicated; E78.00 Pure hypercholesterolemia, unspecified; G43.909 Migraine, unspecified, not intractable, without status migrainosus; K21.9 Gastro-esophageal reflux disease without esophagitis; E11.9 Type 2 diabetes mellitus without complications; E03.9 Hypothyroidism, unspecified; Z79.890 Hormone replacement therapy; Z98.890 Other specified postprocedural states; Z79.84 Long term (current) use of oral hypoglycemic drugs
CPT/HCPCS: 36415; 74022; 74177; 80053; 81000; 82150; 83690; 85025; 87077; 87088

== ENCOUNTER → 2021-06-12 | Outpatient (CLI) | payer MEDICARE ==
[~2021-06-12] MED LIST changes: +DICY20TA10 PO; +HYOS0.1283 SL; +ONDA8TAB13 PO
--- NOTE | 2021-06-12 16:13 | Diagnostic Imaging Report ---
INDICATION: Ulceration of the lateral right ankle. Sonography of the area of concern in the lateral right ankle shows no solid or cystic mass. There is no abnormal fluid collection. No abscess is evident. IMPRESSION: No abnormality is seen. Dictated by: Dictated on workstation # [id number]
== END ==
LOC: RAD 15:30
PROVIDERS: ATTEND Pediatrics
DX: L97.319 Non-pressure chronic ulcer of right ankle with unspecified severity (principal)
CPT/HCPCS: 76881

== ENCOUNTER 2022-02-09 21:56 | Emergency (ER) | payer MEDICARE ==
[~2022-02-09] VITALS: Ht 160 cm; Wt 74.8 kg
[~2022-02-09 21:56] MED LIST changes: +DICY20TA PO; -DICY20TA10 PO; +SCOP1PAT10 TD; -SCOP1PAT11 TD
[2022-02-09] MEDS ORDERED: KETOROLAC 30 MG/ML VIAL IVP STA (22:27)
[2022-02-09] MEDS ORDERED: NS IV 1000 ML 1,000 ML IV SCH (22:30)
[2022-02-09 22:35] LABS: BILIRUBIN,URINE NEGATIVE (NEGATIVE); CLARITY,URINE CLEAR; COLOR,URINE YELLOW; GLUCOSE, URINE (UA) NEGATIVE (NEGATIVE); KETONES,URINE NEGATIVE (NEGATIVE); LEUKOCYTE ESTERASE ,URINE NEGATIVE (NEGATIVE); NITRITE,URINE NEGATIVE (NEGATIVE); PH,URINE 5.5 (5-9); PROTEIN,URINE NEGATIVE (NEGATIVE)
--- NOTE | 2022-02-09 22:35 | ED Abdominal Pain ---
General Chief Complaint: Abdominal/GI Problems Stated Complaint: SIDE PAIN Source of Information: Patient History of Present Illness Date Seen by Provider: Feb 09, 2022 Time Seen by Provider: 22:22 Initial Comments PT ARRIVES VIA POV C/O LLQ/LEFT INGUINAL PAIN X 1 MONTH PAIN MOVED TO LEFT MID ABDOMEN TODAY AND IS WORSE THAN IT HAS BEEN --HAS NOT SOUGHT CARE UNTIL TONIGHT. TOOK 2 IBUPROFEN AT 1900 WITHOUT RELIEF NO INJURY OR UNUSUAL ACTIVITY--HAS BEEN AT [facility] ALL EVENING C/O NAUSEA AND VOMITED X 1 TODAY--HAD NOT HAD ANY NAUSEA/VOMITING PRIOR TO TODAY HAD NORMAL BM THIS AM--NO BLACK/BLOODY/TARRY STOOLS NO FEVER NO URINARY SYMPTOMS APPETITE HAS BEEN NORMAL NO HISTORY OF SIMILAR PRIOR ABDOMINAL SURGERIES INCLUDE CHOLECYSTECTOMY AND APPENDECTOMY NO PRIOR GI / COLON PROBLEMS PCP: SUMAN Allergies and Home Medications Allergies Coded Allergies: No Known Drug Allergies (Unverified , 11/30/19) Patient Home Medication List Dicyclomine HCl (Dicyclomine HCl) 20 Mg Tablet, 20 MG PO Q6H Prescribed by: RENALDO SIGALA on 08/06/20 0158 Hydrocodone Bit/Acetaminophen (Lortab 5 Mg Tablet) 1 Tab Tab, 1 TAB PO Q6H PRN for PAIN-MODERATE Prescribed by: SONU EARL on 12/04/19 1105 Hyoscyamine Sulfate (Levsin-Sl) 0.125 Mg Tab.subl, 0.25 MG SL Q4H Prescribed by: RENALDO SIGALA on 08/06/20 0158 Levothyroxine Sodium (Levothyroxine Sodium) 75 Mcg Tablet, 75 MCG PO DAILY, (Reported) Entered as Reported by: JUANPABLO MTZ on 11/30/19 1058 Metformin HCl (Metformin HCl) 500 Mg Tablet, 500 MG PO DAILY, (Reported) Entered as Reported by: JUANPABLO MTZ on 11/30/19 1058 Oakwood-3 Fatty Acids/Fish Oil (Oakwood 3 1,000 mg Softgel) 1 Each Capsule, 1 EACH PO BID, (Reported) Entered as Reported by: JUANPABLO MTZ on 11/30/19 1058 Omeprazole (Omeprazole) 20 Mg Capsule.dr, 20 MG PO DAILY, (Reported) Entered as Reported by: JUANPABLO MTZ on 11/30/19 1058 Ondansetron (Ondansetron Odt) 8 Mg Tab.rapdis, 8 MG PO Q6H Prescribed by: RENALDO SIGALA on 08/06/20 0158 Simvastatin (Simvastatin) 80 Mg Tablet, 80 MG PO DAILY, (Reported) Entered as Reported by: JUANPABLO MTZ on 11/30/19 1058 Sucralfate (Sucralfate) 1 Gm Tablet, 1 GM PO QID, (Reported) Entered as Reported by: JUANPABLO MTZ on 11/30/19 1058 Review of Systems Review of Systems Constitutional: no symptoms reported Respiratory: No Symptoms Reported Cardiovascular: No Symptoms Reported Gastrointestinal: See HPI, Abdominal Pain, Nausea, Vomiting Genitourinary: No Symptoms Reported Musculoskeletal: no symptoms reported Skin: no symptoms reported Psychiatric/Neurological: No Symptoms Reported Endocrine: No Symptoms Reported Hematologic/Lymphatic: No Symptoms Reported Past Gkkmneo-Soscgw-Huvvlg Hx Patient Social History Tobacco Use?: Yes (2 PPD) Tobacco type used: Cigarettes Substance use?: No Alcohol Use?: No Seasonal Allergies Seasonal Allergies: No Past Medical History Surgeries: Yes Appendectomy, Gallbladder, Tonsillectomy, Tubal Ligation Respiratory: Yes COPD Currently Using CPAP: No Currently Using BIPAP: No Cardiac: Yes High Cholesterol, Hypertension Neurological: Yes 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 /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, Menopausal Genitourinary: No Gastrointestinal: Yes (S/P SHERI AND APPY) Gastroesophageal Reflux, Chronic Constipation, Gall Bladder Disease Musculoskeletal: Yes Arthritis Endocrine: Yes (OBESITY) Hypothyroidsim, Diabetes, Non-Insulin dep HEENT: No (GLASSES, DENTURES) Loss of Vision: Denies Hearing Impairment: Denies Cancer: No Psychosocial: No Integumentary: No Blood Disorders: No Adverse Reaction/Blood Tranf: No (N/A) Physical Exam Vital Signs Vital Signs - First Documented 02/09/22 22:07 Temp 37.4 Pulse 97 Resp 22 B/P (MAP) 146/61 (89) Pulse Ox 98 O2 Delivery Room Air Capillary Refill : Height/Weight/BMI Height: 5'2.00" Weight: 150lbs. oz. 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, no motor/sensory deficits, alert, normal mood/affect, oriented x 3 Skin: normal color, warm/dry; No rash; tattoos/piercings (TATTOOS) Focused Exam Sepsis Stage: Ruled Out Reason for ruling out sepsis: DOES NOT MEET CRITERIA Possible Source: GI Tract/Intra-Abdominal Lactate Level 02/09/22 22:30: Lactic Acid Level 2.68*H 02/10/22 00:45: Time of Focused Exam: 23:30 Respiratory: Normal Breath Sounds, No Accessory Muscle Use, No Respiratory Distress Cardiovascular: Regular Rate, Rhythm, No Murmur Capillary Refill: Less Than 3 Seconds Skin: normal color, warm/dry Lactic Acid Level Laboratory Tests Test 02/09/22 22:30 02/10/22 00:45 Lactic Acid Level 2.68 MMOL/L (0.50-2.00) *H Within 3hrs of presentation: Admin fluids, Blood cultures prior to ABX's, Focus exam, Lactate level Progress/Results/Core Measures Results/Orders Lab Results Laboratory Tests Test 02/09/22 22:20 02/09/22 22:30 02/10/22 00:45 Range/Units Urine Color YELLOW Urine Clarity CLEAR Urine pH 5.5 5-9 Urine Specific [place] 1.015 L 1.016-1.022 Urine Protein NEGATIVE NEGATIVE Urine Glucose (UA) NEGATIVE NEGATIVE Urine Ketones NEGATIVE NEGATIVE Urine Nitrite NEGATIVE NEGATIVE Urine Bilirubin NEGATIVE NEGATIVE Urine Urobilinogen 0.2 < = 1.0 MG/DL Urine Leukocyte Esterase NEGATIVE NEGATIVE Urine RBC (Auto) TRACE-I H NEGATIVE Urine RBC 0-2 /HPF Urine WBC 2-5 /HPF Urine Squamous Epithelial Cells 0-2 /HPF Urine Crystals NONE /LPF Urine Bacteria TRACE /HPF Urine Casts NONE /LPF Urine Mucus NEGATIVE /LPF Urine Culture Indicated NO White Blood Count 11.0 4.3-11.0 10^3/uL Red Blood Count 4.32 3.80-5.11 10^6/uL Hemoglobin 12.7 11.5-16.0 g/dL Hematocrit 39 35-52 % Mean Corpuscular Volume 90 80-99 fL Mean Corpuscular Hemoglobin 29 25-34 pg Mean Corpuscular Hemoglobin Concent 33 32-36 g/dL Red Cell Distribution Width 14.4 10.0-14.5 % Platelet Count 365 130-400 10^3/uL Mean Platelet Volume 9.0 9.0-12.2 fL Immature Granulocyte % (Auto) 0 % Neutrophils (%) (Auto) 60 42-75 % Lymphocytes (%) (Auto) 32 12-44 % Monocytes (%) (Auto) 6 0-12 % Eosinophils (%) (Auto) 1 0-10 % Basophils (%) (Auto) 1 0-10 % Neutrophils # (Auto) 6.5 1.8-7.8 10^3/uL Lymphocytes # (Auto) 3.5 1.0-4.0 10^3/uL Monocytes # (Auto) 0.7 0.0-1.0 10^3/uL Eosinophils # (Auto) 0.2 0.0-0.3 10^3/uL Basophils # (Auto) 0.1 0.0-0.1 10^3/uL Immature Granulocyte # (Auto) 0.0 0.0-0.1 10^3/uL Sodium Level 139 135-145 MMOL/L Potassium Level 3.2 L 3.6-5.0 MMOL/L Chloride Level 102 98-107 MMOL/L Carbon Dioxide Level 21 21-32 MMOL/L Anion Gap 16 H 5-14 MMOL/L Blood Urea Nitrogen 11 7-18 MG/DL Creatinine 0.80 0.60-1.30 MG/DL Estimat Glomerular Filtration Rate 79 BUN/Creatinine Ratio 14 Glucose Level 104 70-105 MG/DL Lactic Acid Level 2.68 *H 0.50-2.00 MMOL/L Calcium Level 9.8 8.5-10.1 MG/DL Corrected Calcium 9.7 8.5-10.1 MG/DL Total Bilirubin 0.4 0.1-1.0 MG/DL Aspartate Amino Transf (AST/SGOT) 13 5-34 U/L Alanine Aminotransferase (ALT/SGPT) 9 0-55 U/L Alkaline Phosphatase 71 40-136 U/L Total Protein 6.8 6.4-8.2 GM/DL Albumin 4.1 3.2-4.5 GM/DL Amylase Level 58 25-125 U/L Lipase 15 8-78 U/L Procalcitonin 0.02 <0.10 NG/ML My Orders Orders - RENALDO SIGALA DO Ed Iv/Invasive Line Start (02/09/22:27) Amylase (02/09/22:) Cbc With Automated Diff (02/09/22:) Comprehensive Metabolic Panel (02/09/22:) Lipase (02/09/22) Ua Culture If Indicated (02/09/22:) Ed Iv/Invasive Line Start (02/09/22:) Ns Iv 1000 Ml (Sodium Chloride 0.9%) (02/09/22:30) Ketorolac Injection (Toradol Injection) (02/09/22:) Ct Abd/Pelvis Wo(Kidney Stone) (02/09/22:) Acute Abd Series (02/09/22:) Lactic Acid Analyzer (02/09/22:) Procalcitonin (Pct) (02/09/22:) Blood Culture (02/09/22:) Vital Signs/I&O 02/09/22 22:07 Temp 37.4 Pulse 97 Resp 22 B/P (MAP) 146/61 (89) Pulse Ox 98 O2 Delivery Room Air Progress Progress Note : Progress Note GIVEN IV FLUIDS, ZOFRAN AND TORADOL WITH COMPLETE RELIEF OF SYMPTOMS NO DETERIORATION IN PT'S CONDITION DURING ER STAY MARKED DELAY IN OBTAINING CT REPORT 0010--CALLED XRAY DEPT FOR UPDATE--NO READ FROM [facility] AT THIS TIME. Diagnostic Imaging Comments ACUTE ABDOMEN XRAYS--NO ACUTE PROCESS, PENDING RADIOLOGIST REVIEW CT ABDOMEN/PELVIS--NO ACUTE PROCESS, PER [facility] VIA FAX AT [id number] Reviewed: Reviewed by Me Departure Impression Primary Impression: Left sided abdominal pain Disposition: 01 HOME, SELF-CARE Condition: Improved Departure-Patient Inst. Decision time for Depature: 00:49 Referrals: [facility] (PCP) Primary Care Physician SUDHEER SRINIVASAN (Family) Primary Care Physician Patient Instructions: Abdominal Pain, Adult ED Add. Discharge Instructions: LOTS OF CLEAR LIQUIDS TYLENOL 1 GRAM AND MOTRIN 800 MG EVERY 6 HOURS NEEDED FOR PAIN FOLLOW UP WITH [facility] IN 2-3 DAYS FOR FURTHER CARE, RETURN TO ER IF WORSE All discharge instructions reviewed with patient and/or family. Voiced understanding. RENALDO SIGALA DO Feb 09, 2022 22:35
[2022-02-09 22:44] LABS: BASOPHILS # (AUTO) 0.1 10^3/uL (0.0-0.1); BASOPHILS % (AUTO) 1 % (0-10); EOSINOPHILS # (AUTO) 0.2 10^3/uL (0.0-0.3); EOSINOPHILS % (AUTO) 1 % (0-10); HEMATOCRIT 39 % (35-52); HEMOGLOBIN 12.7 g/dL (11.5-16.0); LYMPHOCYTES # (AUTO) 3.5 10^3/uL (1.0-4.0); LYMPHOCYTES % (AUTO) 32 % (12-44); MEAN CORPUSCULAR HEMOGLOBIN 29 pg (25-34); MEAN CORPUSCULAR HGB CONC 33 g/dL (32-36); MEAN CORPUSCULAR VOLUME 90 fL (80-99); MONOCYTES # (AUTO) 0.7 10^3/uL (0.0-1.0); MONOCYTES % (AUTO) 6 % (0-12); NEUTROPHILS # (AUTO) 6.5 10^3/uL (1.8-7.8); NEUTROPHILS % (AUTO) 60 % (42-75); PLATELET COUNT 365 10^3/uL (130-400)
[2022-02-09 22:46] LABS: BACTERIA,URINE TRACE /HPF; RBC,URINE 0-2 /HPF; SQUAMOUS EPITHELIAL CELL,UR 0-2 /HPF
[2022-02-09 22:51] LABS: ALBUMIN 4.1 GM/DL (3.2-4.5)
[2022-02-09 22:52] LABS: POTASSIUM 3.2 MMOL/L (3.6-5.0)
[2022-02-09 22:53] LABS: CALCIUM 9.8 MG/DL (8.5-10.1)
[2022-02-09 22:54] LABS: TOTAL PROTEIN 6.8 GM/DL (6.4-8.2)
[2022-02-09 22:56] LABS: BILIRUBIN,TOTAL 0.4 MG/DL (0.1-1.0)
[2022-02-09 22:58] LABS: CREATININE SERUM 0.8 MG/DL (0.60-1.30)
[2022-02-10 00:55] VITALS: BP 111/50
--- NOTE | 2022-02-10 07:20 | Diagnostic Imaging Report ---
PROCEDURE: CT urinary tract, rule out kidney stone. TECHNIQUE: Multiple contiguous axial images were obtained through the abdomen and pelvis without the use of intravenous contrast. Auto Exposure Controls were utilized during the CT exam to meet ALARA standards for radiation dose reduction. INDICATION: Abdominal pain/flank pain. Kidney stone suspected. EXAMINATION: CT abdomen and pelvis without contrast 02/09/2022 COMPARISON: 08/06/2020 FINDINGS: Nonspecific incompletely imaged airspace opacity in the right lung base laterally. This is new since 08/06/2020. It is nonspecific and could represent focal infiltrate. A mass not excluded. A small nodule in the peripheral aspect of the left lower lobe laterally stable from prior CT. This should be followed using Fleischner criteria. There is a small hiatal hernia. Within the abdomen, abdominal viscera limited due to lack of contrast. No acute abnormality appreciated in the liver or spleen. Pancreas unremarkable. Adrenal glands unremarkable. There is evidence of previous cholecystectomy. There is no nephrolithiasis or hydronephrosis. There are no ureteral stones. Foci of air along the bladder likely volume averaging from the adjacent colon most likely due to cystitis. Correlate with urinalysis. There is no ascites or free air. No obstructive bowel gas pattern. Atherosclerotic disease is noted. There is no acute osseous abnormality. IMPRESSION: 1. Nonspecific airspace opacity in the periphery of the right lung incompletely imaged. This could represent a small infiltrate. A mass not excluded and follow-up imaging with dedicated imaging of the chest recommended. Small nodule in the left lower lung stable but should be followed. These are additional findings not mentioned by [facility] report. 2. Air along the urinary bladder most likely volume averaging from the adjacent colon, less likely air in the bladder, correlate for cystitis. 3. No nephrolithiasis or hydronephrosis. Incidental findings as above. Dictated by: Dictated on workstation # [id number]
--- NOTE | 2022-02-10 07:30 | Diagnostic Imaging Report ---
INDICATION: Abdominal pain TECHNIQUE: Single view chest with supine and upright radiographs of the abdomen. CORRELATION STUDY: 08/06/2020 FINDINGS: Minimal infiltrate-like opacity at the right lung base laterally. Remaining lung mckeon otherwise unremarkable. Mediastinal structures stable and unremarkable. Moderate stool throughout the colon. No large fecal impaction. Presumably cholecystectomy clips in the right upper quadrant of the abdomen. IMPRESSION: 1. Question minimal infiltrate right lung base laterally. 2. Moderate stool throughout the colon. No large fecal impaction or evidence for bowel obstruction. Dictated by: Dictated on workstation # [id number]
== END 2022-02-10 00:55 | disposition home or self-care (01) ==
LOC: EDUNIT# 21:56 → ER 21:57
DX: R10.32 Left lower quadrant pain (principal); E66.9 Obesity, unspecified; F17.210 Nicotine dependence, cigarettes, uncomplicated; Z68.25 Body mass index [BMI] 25.0-25.9, adult
CPT/HCPCS: 36415; 74022; 74176; 80053; 81000; 82150; 83605; 83690; 84145; 85025; 87040

== ENCOUNTER → 2023-09-23 | Outpatient (CLI) | payer MEDICARE ==
[~2023-09-23] VITALS: Ht 160 cm; Wt 74.8 kg
[~2023-09-23] MED LIST changes: -MECL-149 PO; +MECL-291 PO
== END | disposition home or self-care (01) ==
LOC: PREOP 05:31
PROVIDERS: ATTEND Specialist
DX: Z01.818 Encounter for other preprocedural examination (principal)

== ENCOUNTER 2023-09-27 07:17 | Day surgery (SDC) | payer MEDICARE ==
[~2023-09-27] VITALS: Ht 160 cm; Wt 74.8 kg
[2023-09-27] MEDS ORDERED: POVIDONE IODINE OPHTH SOLN 5% 30 ML OP ONE (08:00)
[2023-09-27] MEDS ORDERED: LIDOCAINE PF 1% 2 ML VIAL IR PRN (08:00)
[2023-09-27] MEDS ORDERED: TIMOLOL 0.5% (CATARACTS) 0.3 ML BTL OU PRN (08:00)
[2023-09-27] MEDS ORDERED: MOXIFLOXACIN OPHTH SOLN 5 MG/ML 0.5 ML SYRINGE OP ONE (08:00)
[2023-09-27] MEDS: TETRACAINE 0.5% OPHTH SOLN 5 ML BTL OU PRN ×4 (08:04→08:24)
[2023-09-27 08:10] VITALS: BP 134/74
[2023-09-27] MEDS: PHENYLEPHRINE 10% OPHTH SOLN 5 ML BTL OU SCH ×3 (08:13→08:24)
[2023-09-27] MEDS: TROPICAMIDE 1% OPH SOLN (MYDRIACYL) 15 ML BTL OP SCH ×3 (08:13→08:24)
[2023-09-27] MEDS ORDERED: MIDAZOLAM INJ 2 MG/2 ML VIAL ONE (08:46)
--- NOTE | 2023-09-27 08:48 | Ophthalmologist Pre-Op Note ---
Pre-Operative Progress Note H&P Reviewed The H&P was reviewed, patient examined and no changes noted. Date H&P Reviewed: Sep 27, 2023 Time H&P Reviewed: 07:44 Pre-Op Dx Cataract, Left Eye RUFINO BLACKMAN MD Sep 27, 2023 08:48
--- NOTE | 2023-09-27 09:02 | Ophthalmology Operative Report ---
Cataract removal/placement IOL PREOPERATIVE DIAGNOSIS: Cataract Left Eye POSTOPERATIVE DIAGNOSIS: Cataract Left Eye PROCEDURE: Cataract removal and placement of posterior chamber implant, left eye SURGEON: Gianni Blackman ANESTHESIA: Topical with sedation COMPLICATIONS: None ESTIMATED BLOOD LOSS: Minimal DESCRIPTION OF PROCEDURE: After proper informed consent was obtained, the patient, a 73 female, was taken to the Operating Room and the left eye was anesthetized with tetracaine. The left eye was then prepped and draped in the usual manner. A wire lid speculum was placed. A paracentesis was made at the left hand position. Preservative free lidocaine was injected into the anterior chamber followed by viscoelastic. A clear corneal incision was made in the temporal position. A capsulorrhexis was preformed and the central nuclear and cortical material were removed. The posterior capsule was polished and an Jose 24.0 CNA0T0 was placed into the capsular bag. The residual viscoelastic was aspirated and balanced saline solution was injected into the anterior chamber. Moxifloxacin was injected into the anterior chamber. The wound was checked and found to be water tight. The patient tolerated the procedure well without complications. GIANNI BLACKMAN MD Sep 27, 2023 09:02
[2023-09-27 09:06] VITALS: BP 134/74
--- NOTE | 2023-09-27 12:44 | Anesthesia-General Post-Op ---
MAC Patient Condition Mental Status/LOC: Same as Preop Cardiovascular: Satisfactory Nausea/Vomiting: Absent Respiratory: Satisfactory Pain: Controlled Complications: Absent Post Op Complications Complications None Follow Up Care/Instructions Patient Instructions None needed. Anesthesiology Discharge Order Discharge Order Patient is doing well, no complaints, stable vital signs, no apparent adverse anesthesia problems. No complications reported per nursing. REJI ISIDRO CRNA Sep 27, 2023 12:44
== END 2023-09-27 09:12 | disposition home or self-care (01) ==
LOC: SDC 07:17
PROVIDERS: ATTEND Specialist
DX: E11.36 Type 2 diabetes mellitus with diabetic cataract (principal); H25.9 Unspecified age-related cataract; F17.200 Nicotine dependence, unspecified, uncomplicated; Z79.84 Long term (current) use of oral hypoglycemic drugs
CPT/HCPCS: 66984; V2632

== ENCOUNTER 2023-10-04 09:57 | Outpatient (CLI) | payer MEDICARE ==
[~2023-10-04] VITALS: Ht 160 cm; Wt 74.8 kg
== END 2023-10-04 14:00 | disposition home or self-care (01) ==
LOC: PREOP 09:57
PROVIDERS: ATTEND Specialist
DX: Z01.818 Encounter for other preprocedural examination (principal)

== ENCOUNTER 2023-10-11 06:13 | Day surgery (SDC) | payer MEDICARE ==
[~2023-10-11] VITALS: Ht 160 cm; Wt 74.8 kg
[2023-10-11] MEDS ORDERED: MOXIFLOXACIN OPHTH SOLN 5 MG/ML 0.5 ML SYRINGE OP ONE (06:15)
[2023-10-11] MEDS ORDERED: TIMOLOL 0.5% (CATARACTS) 0.3 ML BTL OU PRN (06:15)
[2023-10-11] MEDS ORDERED: LIDOCAINE PF 1% 2 ML VIAL IR PRN (06:15)
[2023-10-11] MEDS ORDERED: POVIDONE IODINE OPHTH SOLN 5% 30 ML OP ONE (06:15)
[2023-10-11 06:20] VITALS: BP 129/67
[2023-10-11] MEDS: TETRACAINE 0.5% OPHTH SOLN 5 ML BTL OU PRN ×4 (06:33→06:53)
[2023-10-11] MEDS: TROPICAMIDE 1% OPH SOLN (MYDRIACYL) 15 ML BTL OP SCH ×3 (06:36→06:49)
[2023-10-11] MEDS: PHENYLEPHRINE 10% OPHTH SOLN 5 ML BTL OU SCH ×3 (06:43→06:53)
--- NOTE | 2023-10-11 07:14 | Ophthalmologist Pre-Op Note ---
Pre-Operative Progress Note H&P Reviewed The H&P was reviewed, patient examined and no changes noted. Date H&P Reviewed: Oct 11, 2023 Time H&P Reviewed: 07:14 Pre-Op Dx Cataract, Right Eye RUFINO BLACKMAN MD Oct 11, 2023 07:14
[2023-10-11] MEDS ORDERED: MIDAZOLAM INJ 2 MG/2 ML VIAL ONE (07:40)
--- NOTE | 2023-10-11 08:00 | Ophthalmology Operative Report ---
Cataract removal/placement IOL PREOPERATIVE DIAGNOSIS: Cataract Right Eye POSTOPERATIVE DIAGNOSIS: Cataract Right Eye PROCEDURE: Cataract removal and placement of posterior chamber implant, right eye SURGEON: Gianni Blackman ANESTHESIA: Topical with sedation COMPLICATIONS: None ESTIMATED BLOOD LOSS: Minimal DESCRIPTION OF PROCEDURE: After proper informed consent was obtained, the patient, a 73 female, was taken to the Operating Room and the right eye was anesthetized with tetracaine. The right eye was then prepped and draped in the usual manner. A wire lid speculum was placed. A paracentesis was made at the left hand position. Preservative free lidocaine was injected into the anterior chamber followed by viscoelastic. A clear corneal incision was made in the temporal position. A capsulorrhexis was preformed and the central nuclear and cortical material were removed. The posterior capsule was polished and Jose 23.5 CNA0T0 IOL was placed into the capsular bag. The residual viscoelastic was aspirated and balanced saline solution was injected into the anterior chamber. Moxifloxacin was injected into the anterior chamber. The wound was checked and found to be water tight. The patient tolerated the procedure well without complications. GIANNI BLACKMAN MD Oct 11, 2023 08:00
[2023-10-11 08:03] VITALS: BP 114/79
--- NOTE | 2023-10-11 14:20 | Anesthesia-General Post-Op ---
MAC Patient Condition Mental Status/LOC: Same as Preop Cardiovascular: Satisfactory Nausea/Vomiting: Absent Respiratory: Satisfactory Pain: Controlled Complications: Absent Post Op Complications Complications None Follow Up Care/Instructions Patient Instructions None needed. Anesthesiology Discharge Order Discharge Order Patient is doing well, no complaints, stable vital signs, no apparent adverse anesthesia problems. No complications reported per nursing. LORRI GALARZA CRNA Oct 11, 2023 14:20
== END 2023-10-11 08:06 ==
LOC: SDC 06:13
PROVIDERS: ATTEND Specialist
DX: H26.9 Unspecified cataract (principal); F17.200 Nicotine dependence, unspecified, uncomplicated
CPT/HCPCS: 66984; V2632